=== PATIENT | male | born 1985 | race Caucasian/White ===

== ENCOUNTER 2019-03-19 19:25 | Inpatient (IN) ==
[2019-03-19] MEDS ORDERED: SODIUM CHLORIDE 0.9% 1000ML 1,000 ML IV SCH (20:00)
--- NOTE | 2019-03-19 20:18 | Emergency Department Note ---
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 He states that the nurse said "she couldn't hear out of his right lung." The patient reports that he had a fall 3 weeks ago after a few drinks, was taken to the hospital, and diagnosed with double pneumonia at [facility]. He reports that he was discharged from that hospital earlier today, noting that he was admitted for about 2 weeks. The patient complains of right-sided rib pain. He denies any SOB, new cough, lower extremity swelling, and abdominal pain. The patient reports that he used to have 10 drinks a day, but he has not had any alcohol in the past 3 weeks. He reports that he smokes a pack of cigarettes a day. Home Medications Home Medications Medication Instructions Recorded Confirmed Type acetaminophen [Tylenol] 650 mg PO BID PRN 03/19/19 03/19/19 History calcium carbonate [Tums] 400 mg PO Q4H PRN 03/19/19 03/19/19 History folic acid 1 mg PO DAILY 03/19/19 03/19/19 History guaifenesin [Mucinex] 600 mg PO BID 03/19/19 03/19/19 History hydroxyzine pamoate [Vistaril] 50 mg PO QID PRN 03/19/19 03/19/19 History ibuprofen 800 mg PO TID PRN 03/19/19 03/19/19 History melatonin 3 mg PO HS PRN 03/19/19 03/19/19 History multivitamin 1 tab PO DAILY 03/19/19 03/19/19 History thiamine HCl (vitamin B1) 100 mg PO DAILY 03/19/19 03/19/19 History trazodone 25 mg PO HS 03/19/19 03/19/19 History Allergies Allergy/AdvReac Type Severity Reaction Status Date / Time No Known Allergies Allergy Verified 03/19/19 20:25 Past Med/Surg History Medical History Alcohol use disorder Hypertension Insomnia Pneumonia Tobacco use disorder Surgical History H/O splenectomy Family History Unknown Family history non-contributory Social History Preferred Language: Cymraes Communication Ability: Effective Beliefs That Will Affect Care: None Current Living Situation: Spouse Current Living Situation Comment: first day at [facility] Other Information That Helps Us Care for You: No Feels Safe at Home: Yes Safety Concerns: Feels Safe At This Time Smoking Status: Current every day smoker Tobacco Type: cigarettes Cigarettes Per Day: 20 Do You Dip or Chew Tobacco: No Hx Alcohol Use: Yes Alcohol type: beer Alcohol Intake Frequency: Daily Hx Substance Use: No Review of Systems See HPI for pertinent positives & negatives. and A total of 10 systems reviewed and were otherwise negative Physical Exam Vital Signs Vital Signs - 24 hr 03/19/19 19:32 03/19/19 19:45 03/19/19 19:53 Temperature 37.9 C H Temperature Source Oral Sepsis Recent Fever Within 48 Hours Yes Sepsis Action Taken by Nursing No Action Required Pulse Rate 130 H 114 H Respiratory Rate 20 Respiratory Effort / Characteristics Non-Labored Spontaneous Non-Labored Respiratory Depth Normal Normal Respiratory Pattern Regular Blood Pressure 124/76 Blood Pressure Mean 92 Pulse Oximetry 97 99 Oxygen Delivery Method Room Air Room Air GENERAL: The patient is awake and alert. He is mildly anxious appearing but comfortable. EYES: The conjunctivae are clear. The pupils are round and reactive. EARS, NOSE, MOUTH AND THROAT: The nose is without any evidence of any deformity. Mucous membranes are moist.Tongue is midline NECK: The neck is nontender and supple. RESPIRATORY: Diminished breath sounds were noted in the right lung field. There is no tachypnea or conversational dyspnea appreciated. CARDIOVASCULAR: Tachycardic rate with regular rhythm was noted. No definite murmur was noted. GASTROINTESTINAL: The abdomen is soft. Bowel sounds are present in all quadrants. Abdomen is nontender. MUSCULOSKELETAL/EXTREMITIES: There is no evidence of gross deformity. Full range of motion is noted in the hips and shoulders. SKIN: There is no obvious evidence of any rash. There are no petechiae, pallor or cyanosis noted. NEUROLOGIC: Patient is awake alert and oriented x3. Course 1947: The patient was evaluated in room B03. A complete history and physical exam was performed. 2040: I reassessed the patient and updated him. He become upset when I spoke to him about the plan. 2053: [facility]. He will further evaluate the patient. 2103: I reevaluated the patient. Consultations Consultation #1: I spoke with Dr. London, [facility], about the patients case. He will further evaluate the patient. Time: 20:54 Administered Medications Acetaminophen (Tylenol) 650 mg PO Q4H PRN PRN Reason: Pain or Fever Stop: 04/18/19 22:17 Last Admin: 03/20/19 17:35 Dose: 650 mg Documented by: [id number] Admin: 03/20/19 09:49 Dose: 650 mg Documented by: [id number] Admin: 03/19/19 23:22 Dose: 650 mg Documented by: [id number] Docusate Sodium (Colace) 100 mg PO BID [facility] Stop: 04/19/19 08:59 Last Admin: 03/20/19 09:57 Dose: Not Given Documented by: [id number] Folic Acid (Folvite) 1 mg PO DAILY [facility] Stop: 04/19/19 08:59 Last Admin: 03/20/19 09:57 Dose: Not Given Documented by: [id number] Guaifenesin (Mucinex) 600 mg PO BID [facility] Stop: 04/19/19 08:59 Last Admin: 03/20/19 09:57 Dose: Not Given Documented by: [id number] Hydroxyzine HCl (Vistaril) 50 mg PO QID PRN PRN Reason: Anxiety Stop: 04/18/19 22:17 Last Admin: 03/20/19 09:49 Dose: 50 mg Documented by: [id number] Sodium Chloride (Nss 1000ml) 1,000 mls @ 100 mls/hr IV .Q10H [facility] Stop: 04/18/19 22:17 Last Infusion: 03/20/19 14:26 Dose: 100 mls/hr Documented by: [id number] Infusion: 03/20/19 12:15 Dose: 0 mls/hr Documented by: [id number] Admin: 03/20/19 12:15 Dose: 100 mls/hr Documented by: [id number] Infusion: 03/20/19 09:58 Dose: 100 mls/hr Documented by: [id number] Admin: 03/19/19 23:58 Dose: 100 mls/hr Documented by: [id number] Piperacillin Sod/Tazobactam (Sod 3.375 gm/ Dextrose) 115 mls @ 28.75 mls/hr IV Q8H [facility]; Protocol Stop: 03/27/19 03:59 Last Infusion: 03/20/19 16:31 Dose: 0 mls/hr Documented by: [id number] Admin: 03/20/19 12:14 Dose: 28.8 mls/hr Documented by: [id number] Infusion: 03/20/19 07:23 Dose: 0 mls/hr Documented by: [id number] Admin: 03/20/19 03:05 Dose: 28.8 mls/hr Documented by: [id number] Vancomycin HCl 1,000 mg/ (Sodium Chloride) 270 mls @ 125 mls/hr IV Q8H [facility] Stop: 03/27/19 03:59 Last Infusion: 03/20/19 14:26 Dose: 0 mls/hr Documented by: [id number] Admin: 03/20/19 12:14 Dose: 125 mls/hr Documented by: [id number] Infusion: 03/20/19 06:14 Dose: 0 mls/hr Documented by: [id number] Admin: 03/20/19 03:05 Dose: 125 mls/hr Documented by: [id number] Multivitamins (Multivitamin Tab) 1 tab PO DAILY [facility] Stop: 04/19/19 08:59 Last Admin: 03/20/19 09:57 Dose: Not Given Documented by: [id number] Nicotine (Nicoderm Cq) 21 mg TD QAM [facility] Stop: 04/19/19 08:59 Last Admin: 03/20/19 12:14 Dose: 21 mg Documented by: [id number] Admin: 03/19/19 23:15 Dose: 21 mg Documented by: [id number] Thiamine HCl (Vitamin B-1) 100 mg PO DAILY [facility] Stop: 04/19/19 08:59 Last Admin: 03/20/19 09:57 Dose: Not Given Documented by: [id number] Trazodone HCl (Desyrel) 25 mg PO HS [facility] Stop: 04/19/19 20:59 Last Admin: 03/19/19 23:34 Dose: 25 mg Documented by: [id number] Discontinued Medications Enoxaparin Sodium (Lovenox) 40 mg SQ Q24H [facility] Stop: 04/18/19 22:17 Last Admin: 03/19/19 23:41 Dose: Not Given Documented by: [id number] Sodium Chloride (Nss 1000ml) 1,000 mls @ 999 mls/hr IV .Q1H1M [facility] Stop: 03/19/19 21:00 Last Infusion: 03/20/19 07:25 Dose: 0 mls/hr Documented by: [id number] Infusion: 03/19/19 20:49 Dose: 0 mls/hr Documented by: [id number] Admin: 03/19/19 20:15 Dose: 999 mls/hr Documented by: [id number] Cefepime HCl (Maxipime) 20 mls @ 5 mls/min IV NOW STA Stop: 03/19/19 20:29 Last Admin: 03/19/19 20:41 Dose: 5 mls/min Documented by: [id number] Vancomycin HCl 1,750 mg/ (Sodium Chloride) 535 mls @ 200 mls/hr IV NOW STA Stop: 03/19/19 23:07 Last Infusion: 03/19/19 23:41 Dose: 0 mls/hr Documented by: [id number] Admin: 03/19/19 20:46 Dose: 200 mls/hr Documented by: [id number] Azithromycin 500 mg/ Dextrose 255 mls @ 127.5 mls/hr IV NOW STA Stop: 03/19/19 22:27 Last Infusion: 03/19/19 23:02 Dose: 0 mls/hr Documented by: [id number] Admin: 03/19/19 20:46 Dose: 127.5 mls/hr Documented by: [id number] Piperacillin Sod/Tazobactam (Sod 4.5 gm/ Dextrose) 120 mls @ 200 mls/hr IV NOW ONE; Protocol Stop: 03/19/19 23:20 Last Infusion: 03/20/19 01:05 Dose: 0 mls/hr Documented by: [id number] Admin: 03/20/19 00:10 Dose: 200 mls/hr Documented by: [id number] Ioversol (Optiray 320 125ml) 119 ml IV ONCE PRN PRN Reason: Interaction Checking Stop: 03/23/19 21:11 Last Admin: 03/19/19 21:12 Dose: 119 ml Documented by: [id number] Medical Decision Making Differential Diagnosis Etiologies such as shingles, musculoskeletal pain, pericarditis, myocarditis, cardiac ischemia, pericardial tamponade, pneumonia, pneumothorax, pleural effusion, hemothorax, pleurisy, aortic pathology, pulmonary embolism, intra- abdominal process, as well as others were considered. Medical Records Attestation: I reviewed the patient's medical records. Home Medications Current Medication List: was personally reviewed by me Laboratory Data Attestation: I reviewed the patient's lab results. Result diagrams: 03/19/19 20:10 03/19/19 20:10 Lab Results 03/19/19 03/19/19 03/19/19 Range/Units 20:05 20:10 20:10 WBC 23.26 H (4.8-10.8) K/uL RBC 3.28 L (4.7-6.1) M/uL Hgb 12.0 L (14.0-18.0) g/dL Hct 34.6 L (42-52) % MCV 105.5 H (80-100) fL MCH 36.6 H (25-34) pg MCHC 34.7 (32-36) g/dL RDW Std Deviation 53.5 H (36.4-46.3) fL RDW Coeff of Delicia 13.9 (11.5-14.5) % Plt Count 1070 H* (130-400) K/uL MPV 9.4 (7.4-10.4) fL Immature Gran % (Auto) 1.6 % Neut % (Auto) 62.3 % Lymph % (Auto) 11.9 % [place] % (Auto) 22.3 % Eos % (Auto) 1.6 % Baso % (Auto) 0.3 % Immature Gran # (Auto) 0.37 H (0.00-0.02) K/uL Neut # (Auto) 14.49 H (1.4-6.5) K/uL Lymph # (Auto) 2.77 (1.2-3.4) K/uL [place] # (Auto) 5.19 H (0.11-0.59) K/uL Eos # (Auto) 0.37 (0-0.5) K/uL Baso # (Auto) 0.07 (0-0.2) K/uL Absolute Nucleated RBC 0.00 (0-0) K/uL Nucleated RBC % (auto) 0.0 % Polychromasia 1+ Anisocytosis Present Pappenheimer Bodies 2+ Peripher Smr Path Cons ESR (0-14) mm/hr PT 10.2 (9.0-12.0) Seconds INR 1.0 (0.9-1.1) APTT 33.4 H (21.0-31.0) Seconds PTT Ratio 1.2 Sodium (136-145) mmol/L Potassium (3.5-5.1) mmol/L Chloride (98-107) mmol/L Carbon Dioxide (21-32) mmol/L Anion Gap (3-11) BUN (7-18) mg/dl Creatinine (0.6-1.4) mg/dl Est Cr Clr Drug Dosing ml/min Est GFR ( Amer) Est GFR (Non-Af Amer) BUN/Creatinine Ratio (10-20) Glucose (70-99) mg/dl POC Lactic Acid Flavio 1.04 (0.90-1.70) mmol/L Calcium (8.5-10.1) mg/dl Magnesium (1.8-2.4) mg/dl Total Bilirubin (0.2-1) mg/dl AST (15-37) U/L ALT (12-78) U/L Alkaline Phosphatase (45-117) U/L Troponin I (0-0.045) ng/ml C-Reactive Protein (0-0.29) mg/dl Total Protein (6.4-8.2) gm/dl Albumin (3.4-5.0) gm/dl Globulin (2.5-4.0) gm/dl Albumin/Globulin Ratio (0.9-2) 03/19/19 03/19/19 03/19/19 Range/Units 20:10 20:10 20:10 WBC (4.8-10.8) K/uL RBC (4.7-6.1) M/uL Hgb (14.0-18.0) g/dL Hct (42-52) % MCV (80-100) fL MCH (25-34) pg MCHC (32-36) g/dL RDW Std Deviation (36.4-46.3) fL RDW Coeff of Delicia (11.5-14.5) % Plt Count (130-400) K/uL MPV (7.4-10.4) fL Immature Gran % (Auto) % Neut % (Auto) % Lymph % (Auto) % [place] % (Auto) % Eos % (Auto) % Baso % (Auto) % Immature Gran # (Auto) (0.00-0.02) K/uL Neut # (Auto) (1.4-6.5) K/uL Lymph # (Auto) (1.2-3.4) K/uL [place] # (Auto) (0.11-0.59) K/uL Eos # (Auto) (0-0.5) K/uL Baso # (Auto) (0-0.2) K/uL Absolute Nucleated RBC (0-0) K/uL Nucleated RBC % (auto) % Polychromasia Anisocytosis Pappenheimer Bodies Peripher Smr Path Cons ESR 84 H (0-14) mm/hr PT (9.0-12.0) Seconds INR (0.9-1.1) APTT (21.0-31.0) Seconds PTT Ratio Sodium 134 L (136-145) mmol/L Potassium 4.1 (3.5-5.1) mmol/L Chloride 101 (98-107) mmol/L Carbon Dioxide 26 (21-32) mmol/L Anion Gap 7.0 (3-11) BUN 7 (7-18) mg/dl Creatinine 0.48 L (0.6-1.4) mg/dl Est Cr Clr Drug Dosing 209.8 ml/min Est GFR ( Amer) > 150.0 Est GFR (Non-Af Amer) 143.8 BUN/Creatinine Ratio 13.8 (10-20) Glucose 104 H (70-99) mg/dl POC Lactic Acid Flavio (0.90-1.70) mmol/L Calcium 8.8 (8.5-10.1) mg/dl Magnesium 2.3 (1.8-2.4) mg/dl Total Bilirubin 0.3 (0.2-1) mg/dl AST 21 (15-37) U/L ALT 27 (12-78) U/L Alkaline Phosphatase 92 (45-117) U/L Troponin I < 0.015 (0-0.045) ng/ml C-Reactive Protein 23.20 H (0-0.29) mg/dl Total Protein 7.1 (6.4-8.2) gm/dl Albumin 2.6 L (3.4-5.0) gm/dl Globulin 4.5 H (2.5-4.0) gm/dl Albumin/Globulin Ratio 0.6 L (0.9-2) Imaging Data Radiologist's Impression: Radiology results as stated below per my review and the radiologist's interpretation: XR chest 1V portable HISTORY: 33 years-old Male Dyspnea acute shortness of breath COMPARISON: None available TECHNIQUE: Portable AP view of the chest FINDINGS: Cardiac silhouette is normal in size. Small right pleural effusion with right infrahilar and right lung base opacities. Possible trace left pleural effusion. No pneumothorax or overt pulmonary edema. Bones appear grossly intact. IMPRESSION: Right basilar opacities suspicious for pneumonia with small right parapneumonic effusion. The above report was generated using voice recognition software. It may contain grammatical, syntax or spelling errors. Electronically signed by: Ricardo Daley M.D. 03/19/2019 8:[address] angio chest PE protocol, CT abd pelvis IV con only CT DOSE: 543.25 mGy.cm HISTORY: 33 years-old Male with PE. Acute cough with chest pain TECHNIQUE: Multiple CTA images of the chest were obtained after the intravenous administration of 119 ml Optiray 320. Coronal and sagittal MIPS were obtained from the axial data set and were submitted for review. Additionally, CT abdomen and pelvis with IV contrast only was obtained. All measurements were obtained according to NASCET criteria. A dose lowering technique was utilized adhering to the principles of ALARA. COMPARISON: Chest radiograph of same day. FINDINGS: CTA: Heart is normal in size without pericardial effusion. There is no thoracic aortic aneurysm or dissection. Patency of the imaged great vessels. Pulmonary arterial tree is opacified to the level of the subsegmental branches and demonstrates no focal filling defects to suggest pulmonary thromboembolic disease. CT CHEST: No focal thyroid nodule. Prominent 9 mm right tracheoesophageal recess lymph node. Additionally, there are enlarged subcarinal and right hilar lymph nodes with subcarinal lymph nodes measuring up to 2.0 x 1.7 cm. Mildly prominent nonenlarged AP window lymph nodes. Focus of air about the right lung base appears to be located within the pleural space on image 31 series 4. Mild enhancement of the pleura. Small mildly loculated right pleural effusion with consolidative opacities and groundglass densities noted within the basal right lower lobe and also within the right middle lobe, notably within the medial segment. Additionally, there are irregular consolidative nodular opacities of the superior segment right lower lobe measuring up to 10 mm, image 117 series 4. Mild paraseptal emphysema of the lung apices, right greater than left. Mild bibasilar bronchial wall thickening with areas of mucous plugging. Patchy groundglass opacities of the left lung base. Nodules of the basal left lower lobe are seen measuring up to 1.3 cm. Soft tissues are unremarkable. Bones appear to be intact. CT ABDOMEN/PELVIS: No pneumatosis or pneumoperitoneum. Absent spleen. Multiple soft tissue nodules of the abdominal left upper quadrant suggestive of splenosis. Liver, pancreas and adrenal glands appear unremarkable. Contracted gallbladder with wall thickening. Kidneys, and ureters appear unremarkable. There is mild circumferential wall thickening of the bladder with partial distention. Prostate is upper limits of normal in size. Aorta and IVC are within normal limits. No adenopathy. No bowel obstruction or bowel wall thickening. Moderate formed stool throughout the colon suggests constipation. Terminal ileum and appendix appear normal. No ascites or mesenteric inflammation. Tiny fat filled periumbilical hernia. Multiple additional small ventral fat filled abdominal hernias are noted. Bones appear to be intact. IMPRESSION: 1. No evidence of pulmonary thromboembolic disease. 2. Consolidative and groundglass opacities of the right lung base suggest pneumonia. Additionally, there are a few irregular nodular consolidative densities of the superior segment right lower lobe which are also likely related to infectious or inflammatory etiology. Follow-up CT of the chest after treatment course recommended to document complete resolution. 3. Small mildly loculated right parapneumonic effusion. Focus of air about the right lung base appears to be within the pleural fluid. Correlate clinically to exclude developing empyema. 4. Absent spleen with multiple soft tissue nodules of the abdominal left upper quadrant suggestive of splenosis. Additionally, there are pulmonary nodules of the left lung base measuring up to 13 mm which may also represent splenosis. 5. No bowel obstruction or bowel wall thickening. Normal appendix. 6. Moderate constipation. 7. Additional findings as above. The above report was generated using voice recognition software. It may contain grammatical, syntax or spelling errors. Electronically signed by: Ricardo Daley M.D. 03/19/2019 9:40 PM ECG Data Attestation: I personally reviewed and interpreted this ECG as follows: Indication: other (respiratory problems) Rate (beats per minute): 107 Rhythm: sinus tachycardia Findings: + T-wave inversion (anterior T-wave inversions noted); no ectopy Comparison ECG Date: no prior available Blood Pressure Blood Pressure Findings: Normal blood pressure Blood Pressure Disposition: did not require urgent referral MDM Narrative The patient is a 33-year-old male who presented to the emergency department from inpatient detox for evaluation of abnormal lung sounds. The patient was recently admitted to [facility] after a trauma. The patient was treated for pneumonia. He was discharged from our facility and sent for inpatient detox because of chronic alcoholism. The patient has not had any alcohol within the last few weeks. He does not appear to have signs of detox but he is tachycardic and has a low-grade fever. He does have absent lung sounds in the right lung field which was noticed by nursing at detox. He was s ent to the emergency department for this reason. The patient was treated with IV fluids as well as IV antibiotic's. He was covered for pathogens specifically for his history of splenectomy as well as community-acquired pneumonia as well as hospital-acquired pneumonia. The patient also had a CAT scan of the chest which did reveal signs of some pleural effusion which could be related to an empyema. I discussed the patient's laboratory and radiographic studies with him. I also discussed his case with the on-call [facility] hospitalist group. They have agreed to evaluate the patient in the emergency department for further management and disposition. Impression & Plan Pneumonia, Pleural effusion, Fever, Sinus tachycardia, History of splenectomy, Family history of alcohol abuse Discharge Plan Visit Data *Final* Discharge Date/Time: 03/19/19 21:45 Chief Complaint: Respiratory Problems Stated Complaint: RT LUNG HURTS, DX WITH DOUBLE PNEUMONIA ED Provider: Andre Dominguez Discharge Problem: Pneumonia, Pleural effusion, Fever, Sinus tachycardia, History of splenectomy, Family history of alcohol abuse Patient Disposition: Admitted As Inpatient Discharge Instructions Interventions: ED Discharge Assessment Last Done: 03/19/19 21:45 Discharge Problem: Pneumonia Qualifiers: Pneumonia type: due to unspecified organism Laterality: unspecified laterality Lung location: unspecified part of lung Qualified Code(s): J18.9 - Pneumonia, unspecified organism Fever Qualifiers: Fever type: due to other condition Qualified Code(s): R50.81 - Fever presenting with conditions classified elsewhere The scribe's documentation has been prepared under my direction and personally reviewed by me in its entirety. I confirm that the note above accurately reflects all work, treatment, procedures, and medical decision making performed by me.
[2019-03-19 20:22] LABS: Hematocrit (blood only) 34.6 % (42-52); Mean Corpuscular Hgb Conc 34.7 g/dL (32-36); Mean Corpuscular Volume 105.5 fL (80-100); Mean Platelet Volume 9.4 fL (7.4-10.4); Platelet Count 1070 K/uL (130-400); RDW Coefficient of Variation 13.9 % (11.5-14.5); RDW Standard Deviation 53.5 fL (36.4-46.3); Red Blood Count 3.28 M/uL (4.7-6.1); White Blood Count 23.26 K/uL (4.8-10.8)
[2019-03-19] MEDS ORDERED: CEFEPIME 20 ML IV STA (20:26)
[2019-03-19] MEDS ORDERED: VANCOMYCIN HCL 1,750 MG in SODIUM CHLORIDE 0.9% 500 ML IV STA (20:27)
[2019-03-19 20:28] LABS: Partial Thromboplastin Ratio 1.2; Partial Thromboplastin Time 33.4 Seconds (21.0-31.0); Prothrombin Time 10.2 Seconds (9.0-12.0)
[2019-03-19] MEDS ORDERED: AZITHROMYCIN 500 MG in DEXTROSE 5% 250 ML IV STA (20:28)
--- NOTE | 2019-03-19 20:34 | XRay Report ---
XR chest 1V portable HISTORY: 33 years-old Male Dyspnea acute shortness of breath COMPARISON: None available TECHNIQUE: Portable AP view of the chest FINDINGS: Cardiac silhouette is normal in size. Small right pleural effusion with right infrahilar and right harpal ng base opacities. Possible trace left pleural effusion. No pneumothorax or overt pulmonary edema. Ajay aletha appear grossly intact. IMPRESSION: Right basilar opacities suspicious for pneumonia with small right parapneumonic effusion. The above report was generated using voice recognition software. It may contain grammatical, syntax o r spelling errors. Electronically signed by: Ricardo Daley M.D. 03/19/2019 8:32 PM
[2019-03-19 20:38] LABS: Alanine Aminotransferase 27 U/L (12-78); Albumin Level 2.6 gm/dl (3.4-5.0); Aspartate Aminotransferase 21 U/L (15-37); BUN Creatinine Ratio 13.8 (10-20); Blood Urea Nitrogen 7 mg/dl (7-18); Calcium 8.8 mg/dl (8.5-10.1); Carbon Dioxide 26 mmol/L (21-32); Chloride 101 mmol/L (98-107); Creatinine Clr Calc Pharmacy 209.8 ml/min; Est GFR (African American) > 150.0; Est GFR (Non-African American) 143.8; Glucose 104 mg/dl (70-99); Magnesium 2.3 mg/dl (1.8-2.4); Potassium 4.1 mmol/L (3.5-5.1); Sodium 134 mmol/L (136-145)
[2019-03-19 20:42] LABS: Albumin Globulin Ratio 0.6 (0.9-2); Alkaline Phosphatase 92 U/L (45-117); Anisocytosis Present; Basophils # (auto) 0.07 K/uL (0-0.2); Basophils % (auto) 0.3 %; Bilirubin,Total 0.3 mg/dl (0.2-1); Eosinophils # (auto) 0.37 K/uL (0-0.5); Eosinophils % (auto) 1.6 %; Globulin 4.5 gm/dl (2.5-4.0); Immature Granulocytes # (auto) 0.37 K/uL (0.00-0.02); Immature Granulocytes % (auto) 1.6 %; Lymphocytes # (auto) 2.77 K/uL (1.2-3.4); Lymphocytes % (auto) 11.9 %; Monocytes # (auto) 5.19 K/uL (0.11-0.59); Monocytes % (auto) 22.3 %; Neutrophils # (auto) 14.49 K/uL (1.4-6.5); Neutrophils % (auto) 62.3 %; Polychromasia 1+; Total Protein 7.1 gm/dl (6.4-8.2); Troponin I < 0.015 ng/ml (0-0.045)
[2019-03-19] MEDS ORDERED: OPTIRAY 320 125ml IV PRN (21:12)
--- NOTE | 2019-03-19 21:42 | CT Scan Report ---
CT angio chest PE protocol, CT abd pelvis IV con only CT DOSE: 543.25 mGy.cm HISTORY: 33 years-old Male with PE. Acute cough with chest pain TECHNIQUE: Multiple CTA images of the chest were obtained after the intravenous administration of 119 ml Optiray 320. Coronal and sagittal MIPS were obtained from the axial data set and were submitted for review. Additionally, CT abdomen and pelvis with IV contrast only was obtained. All measurements were obtained according to NASCET criteria. A dose lowering technique was utilized adhering to the pr inciples of ALA. COMPARISON: Chest radiograph of same day. FINDINGS: CTA: Heart is normal in size without pericardial effusion. There is no thoracic aortic aneurysm or dissect ion. Patency of the imaged great vessels. Pulmonary arterial tree is opacified to the level of the zimmerman bsegmental branches and demonstrates no focal filling defects to suggest pulmonary thromboembolic dis ease. CT CHEST: No focal thyroid nodule. Prominent 9 mm right tracheoesophageal recess lymph node. Additionally, ther e are enlarged subcarinal and right hilar lymph nodes with subcarinal lymph nodes measuring up to 2.0 x 1.7 cm. Mildly prominent nonenlarged AP window lymph nodes. Focus of air about the right lung base appears to be located within the pleural space on image 31 series 4. Mild enhancement of the pleura. Small mildly loculated right pleural effusion with consolidative opacities and groundglass densities noted within the basal right lower lobe and also within the right middle lobe, notably within the me dial segment. Additionally, there are irregular consolidative nodular opacities of the superior segme nt right lower lobe measuring up to 10 mm, image 117 series 4. Mild paraseptal emphysema of the lung apices, right greater than left. Mild bibasilar bronchial wall thickening with areas of mucous pluggi ng. Patchy groundglass opacities of the left lung base. Nodules of the basal left lower lobe are seen measuring up to 1.3 cm. Soft tissues are unremarkable. Bones appear to be intact. CT ABDOMEN/PELVIS: No pneumatosis or pneumoperitoneum. Absent spleen. Multiple soft tissue nodules of the abdominal left upper quadrant suggestive of splenosis. Liver, pancreas and adrenal glands appear unremarkable. Cont racted gallbladder with wall thickening. Kidneys, and ureters appear unremarkable. There is mild circ umferential wall thickening of the bladder with partial distention. Prostate is upper limits of lynn l in size. Aorta and IVC are within normal limits. No adenopathy. No bowel obstruction or bowel wall thickening. Moderate formed stool throughout the colon suggests constipation. Terminal ileum and appe ndix appear normal. No ascites or mesenteric inflammation. Tiny fat filled periumbilical hernia. Mult iple additional small ventral fat filled abdominal hernias are noted. Bones appear to be intact. IMPRESSION: 1. No evidence of pulmonary thromboembolic disease. 2. Consolidative and groundglass opacities of the right lung base suggest pneumonia. Additionally, th ere are a few irregular nodular consolidative densities of the superior segment right lower lobe whic h are also likely related to infectious or inflammatory etiology. Follow-up CT of the chest after yannick atment course recommended to document complete resolution. 3. Small mildly loculated right parapneumonic effusion. Focus of air about the right lung base appear s to be within the pleural fluid. Correlate clinically to exclude developing empyema. 4. Absent spleen with multiple soft tissue nodules of the abdominal left upper quadrant suggestive of splenosis. Additionally, there are pulmonary nodules of the left lung base measuring up to 13 mm whi ch may also represent splenosis. 5. No bowel obstruction or bowel wall thickening. Normal appendix. 6. Moderate constipation. 7. Additional findings as above. The above report was generated using voice recognition software. It may contain grammatical, syntax o r spelling errors. Electronically signed by: Ricardo Daley M.D. 03/19/2019 9:40 PM
--- NOTE | 2019-03-19 22:12 | History & Physical Report ---
Date of Service March 19, 2019 Assessment & Plan (1) Sepsis: Sepsis: HCAP Possible Empyema No resolution of fever, Right side chest pain despite 2 weeks of IV antibiotics Start broad spectrum IV Antibiotics (Vanco, Zosyn, azithromycin) Oxygen support, Duonebs PRN Blood cultures obtained CT surgery consulted for possible drainage of empyema Normal lactate level IV fluids Obtain records from [facility] Ongoing Diarrhea: H/O IV ABx at [facility] Check stool for C. difficile Likely overflow diarrhea secondary to moderate constipation Add stool softeners Alcohol use disorder H/O DTs Continue thiamine and folic acid Last alcohol drink 3 weeks ago Needs alcohol rehab placement when stable Counseled to quit drinking Tobacco use disorder Nicotine patch Counseled to quit smoking Thrombocytosis Macrocytosis In setting of S/P splenectomy, trauma, ongoing infection Obtain peripheral smear Microcytic anemia Likely folic acid deficiency due to alcohol use Continue folic acid Monitor Insomnia Continue Home meds DVT Px: SCDs Encourage to ambulate Code Status: Full Code Disposition: Needs alcohol rehab facility placement when stable History of Present Illness Chief Complaint: Fever Primary Care Provider: BRITTANY PCP Patient is a 33-year-old male with history of alcohol use disorder, tobacco use disorder, Insomnia, history of DTs, history of traumatic pneumothorax, traumatic subdural hemorrhage, S/P splenectomy and other problems who was recently admitted at [facility] for bilateral pneumonia and was discharged yesterday to alcohol rehab facility; presents with history of ongoing fever, diarrhea, right-sided pleuritic chest pain, cough with clear expectoration since 3 weeks duration. Patient is a poor historian. As per the records, patient had a fall 3 weeks ago after having few alcohol drinks and was admitted to [facility] and was found to have pneumonia. Patient states that he has been treated with multiple antibiotics during his hospital course but showed no resolution of fever and right-sided pruritic chest pain. He reports chronic diarrhea but denies any abdominal pain, nausea vomiting, blood in stools. His last alcohol drink was 3 weeks ago. He states that his nurse at the rehab facility noted him to have decreased breath sounds on the right side and and so was sent to the hospital for further evaluation. He was noted to have low-grade fever while in ED. CT chest showed no evidence of PE, but showed findings suggestive of consolidative and groundglass opacities of the right lung base suggestive of pneumonia. Also showed findings suggestive of small mildly loculated right parapneumonic effusion. Abdominal CT scan also suggestive moderate constipation. Denies any history of SOB, palpitations, orthopnea, PND, dizziness, pedal edema, wheezing, hemoptysis, chills, weakness, change in vision, nausea, vomiting, abdominal pain, dysuria, hematuria, recent change in medications Allergies Allergy/AdvReac Type Severity Reaction Status Date / Time No Known Allergies Allergy Verified 03/19/19 20:25 Home Medications Home Medications Medication Instructions Recorded Confirmed Type acetaminophen [Tylenol] 650 mg PO BID PRN 03/19/19 03/19/19 History calcium carbonate [Tums] 400 mg PO Q4H PRN 03/19/19 03/19/19 History folic acid 1 mg PO DAILY 03/19/19 03/19/19 History guaifenesin [Mucinex] 600 mg PO BID 03/19/19 03/19/19 History hydroxyzine pamoate [Vistaril] 50 mg PO QID PRN 03/19/19 03/19/19 History ibuprofen 800 mg PO TID PRN 03/19/19 03/19/19 History melatonin 3 mg PO HS PRN 03/19/19 03/19/19 History multivitamin 1 tab PO DAILY 03/19/19 03/19/19 History thiamine HCl (vitamin B1) 100 mg PO DAILY 03/19/19 03/19/19 History trazodone 25 mg PO HS 03/19/19 03/19/19 History Past Med/Surg History Medical History Alcohol use disorder Hypertension Insomnia Pneumonia Tobacco use disorder Surgical History H/O splenectomy Family History Unknown Family history non-contributory Social History Feels Safe at Home: Yes Smoking Status: Current every day smoker Hx Alcohol Use: Yes Alcohol type: beer Alcohol Intake Frequency: Daily Review of Systems Review of Systems: All systems reviewed & are unremarkable except as noted in HPI & below Physical Exam Physical Exam: Physical Exam: Vitals signs as noted above General Appearance:Moderately built and nourished, no apparent distress Head: normocephalic, Atraumatic Eyes: normal inspection, EOMI Neck: supple, Trachea midline Respiratory/Chest: Right side decreased breath sounds, CTA, R chest tender Cardiovascular: S1, S2, No murmur, +sinus tachycardia Abdomen/GI:Soft, Non tender, Bowel sounds present Extremities/Musculoskelatal:normal inspection, no edema Neurologic/Psych:AAOX3, grossly no focal neurological deficits Skin: normal color, warm, Multiple well-healed surgical scars on scalp, abdomen Results & Data Vital Signs (Past 12 Hours) Vital Signs Temp Pulse Pulse Resp BP BP Pulse Ox 03/19/19 21:26 108 H 16 135/90 98 03/19/19 19:53 114 H 99 03/19/19 19:32 37.9 C H 130 H 20 124/76 97 Laboratory Results Short CBC 03/19/19 Range/Units 20:10 WBC 23.26 H (4.8-10.8) K/uL Hgb 12.0 L (14.0-18.0) g/dL Hct 34.6 L (42-52) % Plt Count 1070 H* (130-400) K/uL BMP 03/19/19 20:10 Sodium 134 L Potassium 4.1 Chloride 101 Carbon Dioxide 26 BUN 7 Creatinine 0.48 L Glucose 104 H Calcium 8.8 Cardiac Enzymes 03/19/19 Range/Units 20:10 Troponin I < 0.015 (0-0.045) ng/ml Liver Function 03/19/19 Range/Units 20:10 Total Bilirubin 0.3 (0.2-1) mg/dl AST 21 (15-37) U/L ALT 27 (12-78) U/L Alkaline Phosphatase 92 (45-117) U/L Albumin 2.6 L (3.4-5.0) gm/dl Diagnostic Findings CTA: 1. No evidence of pulmonary thromboembolic disease. 2. Consolidative and groundglass opacities of the right lung base suggest pneumonia. Additionally, there are a few irregular nodular consolidative densities of the superior segment right lower lobe which are also likely related to infectious or inflammatory etiology. Follow-up CT of the chest after treatment course recommended to document complete resolution. 3. Small mildly loculated right parapneumonic effusion. Focus of air about the right lung base appears to be within the pleural fluid. Correlate clinically to exclude developing empyema. 4. Absent spleen with multiple soft tissue nodules of the abdominal left upper quadrant suggestive of splenosis. Additionally, there are pulmonary nodules of the left lung base measuring up to 13 mm which may also represent splenosis. 5. No bowel obstruction or bowel wall thickening. Normal appendix. 6. Moderate constipation. 7. Additional findings as above. ABD CT: 1. No evidence of pulmonary thromboembolic disease. 2. Consolidative and groundglass opacities of the right lung base suggest pneumonia. Additionally, there are a few irregular nodular consolidative densities of the superior segment right lower lobe which are also likely related to infectious or inflammatory etiology. Follow-up CT of the chest after treatment course recommended to document complete resolution. 3. Small mildly loculated right parapneumonic effusion. Focus of air about the right lung base appears to be within the pleural fluid. Correlate clinically to exclude developing empyema. 4. Absent spleen with multiple soft tissue nodules of the abdominal left upper quadrant suggestive of splenosis. Additionally, there are pulmonary nodules of the left lung base measuring up to 13 mm which may also represent splenosis. 5. No bowel obstruction or bowel wall thickening. Normal appendix. 6. Moderate constipation. 7. Additional findings as above. ECG Additional Comments: EKG: Sinus tachycardia, QTC 419
[2019-03-19] MEDS ORDERED: ALBUT/IPRATROP 3MG/0.5MG NEB 3 ML VIAL NEB PRN (22:18)
[2019-03-19] MEDS ORDERED: ENOXAPARIN INJ 40 MG/0.4 ML SYR SQ SCH (22:18)
[2019-03-19] MEDS ORDERED: VANCOMYCIN CONSULT ACTIVE PRN (22:18)
[2019-03-19] MEDS ORDERED: PIPERACILL/TAZOBAC CONSULT ACTIVE PRN (22:29)
[2019-03-19] MEDS ORDERED: PIPERACILLIN/TAZOBACTAM 3.375 GM in DEXTROSE 5% 100 ML IV ONE (22:45)
[2019-03-19] MEDS ORDERED: PIPERACILLIN/TAZOBACTAM 4.5 GM in DEXTROSE 5% 100 ML IV ONE (22:45)
[2019-03-19] MEDS: NICOTINE 21 MG/24 HR TDSY TD SCH (23:15)
[2019-03-19] MEDS: ACETAMINOPHEN 325 MG TAB PO PRN (23:22)
[2019-03-19] MEDS: TRAZODONE HCL 50 MG TAB PO SCH (23:34)
[2019-03-19] MEDS: SODIUM CHLORIDE 0.9% 1000ML 1,000 ML IV SCH (23:58)
[2019-03-20] MEDS: PIPERACILLIN/TAZOBACTAM 3.375 GM in DEXTROSE 5% 100 ML IV SCH ×3 (03:05→20:59)
[2019-03-20] MEDS: VANCOMYCIN HCL 1,000 MG in SODIUM CHLORIDE 0.9% 250 ML IV SCH ×3 (03:05→19:55)
[2019-03-20 07:33] LABS: Pappenheimer Bodies 2+
--- NOTE | 2019-03-20 09:00 | Consultation Report ---
DATE OF CONSULTATION: 03/20/2019 REASON FOR CONSULTATION: Right empyema. HISTORY OF PRESENT ILLNESS: Chente Poole is a 33-year-old male who has a history of alcohol abuse, cigarette use and who has a history of a splenectomy secondary to trauma. The patient was at [facility] for a couple of weeks and then was transferred to an [facility], and 1 day after his arrival, he was complaining of pleuritic chest pain and a chest x-ray and then a subsequent CT scan showed a loculated effusion. The patient's white count is 23,260. His platelet count is 1,070,000. He did have a temperature elevation at 37.9 upon admission last night. The patient gives a history of vomiting and coughing up quite a bit of a couple weeks prior to admission, but was treated with antibiotics for the last couple of weeks while he was at [facility]. I was asked to see him because of this fluid in his chest. There is some air in this. I had a long talk with the patient. He has a history of a subdural hematoma from this accident. I am a bit concerned about the CT scan. He has extension of this fluid into his subcarinal area or has a lymph node or has lymphadenopathy. I was asked to evaluate him for this suspected empyema. PAST MEDICAL HISTORY: 1. Cigarette smoking (at least a pack a day for almost 20 years). 2. History of alcohol abuse which is apparently very heavy. 3. History of pneumonia in the past. 4. Hypertension. 5. Insomnia. 6. Thrombocytosis, secondary to splenectomy. 7. Subdural hematoma. PAST SURGICAL HISTORY: 1. Craniotomy with drainage of subdural hematoma. 2. Laparotomy with splenectomy. MEDICATIONS AT HOME: 1. Folic acid. 2. Mucinex. 3. Vistaril. 4. Ibuprofen. 5. Melatonin. 6. Thiamine. 7. Trazodone. ALLERGIES: No known drug allergies. SOCIAL HISTORY: The patient had some social issues. He is , but lives alone. 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 He currently lives in [place], [place]. He has had some college at [employer] and played baseball there. 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 FAMILY MEDICAL HISTORY: There is a history of alcohol abuse in his family. REVIEW OF SYSTEMS: The patient had vomiting of "a ton of green stuff" about 3 weeks ago that is when his cough started. He may have aspirated. He denies tachycardias or palpitations. He is complaining of right-sided chest pain, but has no other pain in his chest. He denies any neurologic problems. He has had no diarrhea. He apparently was treated for right-sided pneumonia while he was in [facility]. He has not had any alcohol in 3 weeks. He denies hemoptysis or hematemesis. He has had no wound breakdown or skin lesions. He has had no visual or auditory symptoms. PHYSICAL EXAMINATION: GENERAL: This is a 5 feet 8-inch and 155-pound male who is awake and alert. He has multiple tattoos. HEENT: Extraocular movements are intact. His teeth are actually in pretty good repair. He has no obvious dental caries. Tongue is midline. He has no oral mucosal lesions. NECK: His neck is supple. I detect no supraclavicular or cervical lymphadenopathy or carotid bruits. He has no thyroid nodules. LUNGS: Upon auscultation of his lungs, he does have some decreased breath sounds in the right base. He is tender along the right chest, but he has no lesions. HEART: He has a regular rate and rhythm of his heart. He has no significant murmur. ABDOMEN: Soft, nontender, well-healed midline incision. EXTREMITIES: He has good peripheral pulses. No peripheral edema. No joint effusions. NEUROLOGIC: Completely intact. ASSESSMENT AND PLAN: Probable empyema. I believe this patient needs to be drained and decorticated. I do not think a chest tube is going to help him. We will get him set up for a thoracoscopic decortication while he is here.
--- NOTE | 2019-03-20 09:16 | Pharmacy Report ---
Pharmacy Abx Dose Short Note - Date of Service March 20, 2019 - Assessment & Plan Assessment * 33 year old M receiving VANCOMYCIN + ZOSYN + AZITHROMYCIN for treatment of pneumonia with empyema * Patient has recent h/o pneumonia w/ inpatient treatment * He also has a h/o splenectomy and heavy alcohol use and was recently admit to rehab facility * Thoracic surgery consulted for empyema - may undergo thoracoscopic procedure * MRSA nasal swab negative Plan Vancomycin * Initiated overnight, was given loading dose of 1750mg x 1 at 03/19 * Maint dose of 1000mg (~14mg/kg) IV Q 8 hrs was started at ~0300 today * Trough level has been ordered w/ 3rd dose of this regimen * Goal trough: 15-20mcg/mL for pulm infection Zosyn * BMI < 35, eCrCl > 20 * continue 3.375gm ext-infusion Q 8 hrs Pharmacy will continue to follow and will adjust dose/frequency as necessary. Thank you.
[2019-03-20] MEDS: ACETAMINOPHEN 325 MG TAB PO PRN ×3 (09:49→21:58)
[2019-03-20] MEDS: THIAMINE HCL 100 MG TAB PO SCH (09:57)
[2019-03-20] MEDS: DOCUSATE SODIUM 100 MG CAP PO SCH ×2 (09:57→21:59)
[2019-03-20] MEDS: MULTIVITAMIN TAB PO SCH (09:57)
[2019-03-20] MEDS: guaiFENesin 600 MG TABCR PO SCH ×2 (09:57→21:59)
[2019-03-20] MEDS: FOLIC ACID 1 MG TAB PO SCH (09:57)
[2019-03-20] MEDS: NICOTINE 21 MG/24 HR TDSY TD SCH (12:14)
[2019-03-20] MEDS: SODIUM CHLORIDE 0.9% 1000ML 1,000 ML IV SCH ×2 (12:15→23:55)
--- NOTE | 2019-03-20 15:57 | Hospitalist Progress Note ---
Date of Service March 20, 2019 Assessment & Plan (1) Sepsis: Sepsis: HCAP Possible Empyema Has had antibiotics for about 2 weeks in another facility Started on broad spectrum IV Antibiotics (Vanco, Zosyn, azithromycin) Blood cultures obtained -cultures pending CT surgery consulted for possible drainage of empyema Awaiting records from [facility] Clinically stable Ongoing Diarrhea: H/O IV ABx at [facility] Check stool for C. difficile-pending Likely overflow diarrhea secondary to moderate constipation Add stool softeners Alcohol abuse H/O DTs and recent admission to inpatient rehab facility Continue thiamine and folic acid Needs alcohol rehab placement when stable Tobacco use disorder Nicotine patch Counseled to quit smoking Thrombocytosis Macrocytosis In setting of S/P splenectomy, trauma, ongoing infection Obtain peripheral smear Microcytic anemia Likely folic acid deficiency due to alcohol use Continue folic acid Monitor Insomnia Continue Home meds DVT Px: SCDs Encourage to ambulate Code Status: Full Code Disposition: Needs alcohol rehab facility placement when stable Discussed with the patient in detail Subjective 03/20 The patient was seen and examined in the telemetry unit Patient is a 33-year-old male with history of alcohol use disorder, tobacco use disorder, Insomnia, history of DTs, history of traumatic pneumothorax, traumatic subdural hemorrhage, S/P splenectomy and other problems who was recently admitted at [facility] for bilateral pneumonia and was discharged on 03/18 to alcohol rehab facility; presents with history of ongoing fever, diarrhea, right-sided pleuritic chest pain, cough with clear expectoration since 3 weeks duration Noted to have pneumonia with very high white count and possible empyema He has been feeling a little better and so far compliant with management plan Review of Systems Review of Systems: All systems reviewed and are unremarkable except as noted below Constitutional: + chills, + body aches, + fatigue and + weakness; no fever Respiratory: no dyspnea Gastrointestinal: + abdominal pain (Left quadrants) Physical Exam Physical Exam: Minimal distress at rest Constitutional: + ill appearing Eyes: PERRL, conjunctivae normal, anicteric sclerae ENMT: external ear and nose normal, oropharynx normal Neck: trachea midline, no thyromegaly Respiratory: normal respiratory effort; no respiratory distress Auscultation: + diminished lung sounds (Right base) Cardiovascular: Rate/Rhythm: regular rate and regular rhythm Heart Sounds: no murmur Lymphatic: no cervical or axillary lymphadenopathy Results & Data Vital Signs (Past 12 Hours) Vital Signs Temp Pulse Resp BP Pulse Ox 03/20/19 11:12 37.3 C 90 16 129/82 96 03/20/19 07:16 36.9 C 104 H 17 127/82 94 Laboratory Results Short CBC 03/19/19 Range/Units 20:10 WBC 23.26 H (4.8-10.8) K/uL Hgb 12.0 L (14.0-18.0) g/dL Hct 34.6 L (42-52) % Plt Count 1070 H* (130-400) K/uL BMP 03/19/19 20:10 Sodium 134 L Potassium 4.1 Chloride 101 Carbon Dioxide 26 BUN 7 Creatinine 0.48 L Glucose 104 H Calcium 8.8 Cardiac Enzymes 03/19/19 Range/Units 20:10 Troponin I < 0.015 (0-0.045) ng/ml Liver Function 03/19/19 Range/Units 20:10 Total Bilirubin 0.3 (0.2-1) mg/dl AST 21 (15-37) U/L ALT 27 (12-78) U/L Alkaline Phosphatase 92 (45-117) U/L Albumin 2.6 L (3.4-5.0) gm/dl Medications Administered Current Inpatient Medications Acetaminophen (Tylenol) 650 mg PO Q4H PRN PRN Reason: Pain or Fever Stop: 04/18/19 22:17 Last Admin: 03/20/19 09:49 Dose: 650 mg Documented by: Albuterol (Duoneb) 3 ml NEB Q4R PRN PRN Reason: shortness of breath Stop: 04/18/19 22:17 Docusate Sodium (Colace) 100 mg PO BID [facility] Stop: 04/19/19 08:59 Last Admin: 03/20/19 09:57 Dose: Not Given Documented by: Folic Acid (Folvite) 1 mg PO DAILY [facility] Stop: 04/19/19 08:59 Last Admin: 03/20/19 09:57 Dose: Not Given Documented by: Guaifenesin (Mucinex) 600 mg PO BID [facility] Stop: 04/19/19 08:59 Last Admin: 03/20/19 09:57 Dose: Not Given Documented by: Hydroxyzine HCl (Vistaril) 50 mg PO QID PRN PRN Reason: Anxiety Stop: 04/18/19 22:17 Last Admin: 03/20/19 09:49 Dose: 50 mg Documented by: Azithromycin 500 mg/ Dextrose 255 mls @ 125 mls/hr IV Q24H [facility] Stop: 03/25/19 23:03 Sodium Chloride (Nss 1000ml) 1,000 mls @ 100 mls/hr IV .Q10H [facility] Stop: 04/18/19 22:17 Last Infusion: 03/20/19 14:26 Dose: 100 mls/hr Documented by: Piperacillin Sod/Tazobactam (Sod 3.375 gm/ Dextrose) 115 mls @ 28.75 mls/hr IV Q8H [facility]; Protocol Stop: 03/27/19 03:59 Last Admin: 03/20/19 12:14 Dose: 28.8 mls/hr Documented by: Vancomycin HCl 1,000 mg/ (Sodium Chloride) 270 mls @ 125 mls/hr IV Q8H [facility] Stop: 03/27/19 03:59 Last Infusion: 03/20/19 14:26 Dose: Infused Documented by: Miscellaneous (Remove Nicoderm Patch) 1 ea N/A HS [facility] Stop: 04/19/19 20:59 Miscellaneous Information (Consult) 1 ea N/A UD PRN PRN Reason: Consult Stop: 04/18/19 22:17 Miscellaneous Information (Consult) 1 ea N/A UD PRN PRN Reason: Consult Stop: 04/18/19 22:28 Multivitamins (Multivitamin Tab) 1 tab PO DAILY [facility] Stop: 04/19/19 08:59 Last Admin: 03/20/19 09:57 Dose: Not Given Documented by: Nicotine (Nicoderm Cq) 21 mg TD QAM [facility] Stop: 04/19/19 08:59 Last Admin: 03/20/19 12:14 Dose: 21 mg Documented by: Thiamine HCl (Vitamin B-1) 100 mg PO DAILY [facility] Stop: 04/19/19 08:59 Last Admin: 03/20/19 09:57 Dose: Not Given Documented by: Trazodone HCl (Desyrel) 25 mg PO [facility] Stop: 04/19/19 20:59 Last Admin: 03/19/19 23:34 Dose: 25 mg Documented by:
--- NOTE | 2019-03-20 16:53 | Progress Note ---
DATE: 03/20/2019 Mr. Poole was seen this afternoon. The patient was tentatively scheduled for his decortication today, but became agitated wanting to eat, so the surgery was postponed. I have tentatively scheduled him for tomorrow about 1:00 for a right thoracoscopy with decortication. Mr. Poole has some behavioral issues and I am hopeful that he will proceed with the surgery tomorrow. I think this is making him ill and it needs to be addressed.
[2019-03-20] MEDS ORDERED: COUGH DROP (SUGAR FREE) LOZ 24 LOZ/1 BOX BUCCAL ONE (18:06)
[2019-03-20] MEDS ORDERED: VANCOMYCIN TROUGH ONE (19:30)
[2019-03-20 19:50] LABS: BUN Creatinine Ratio 7.1 (10-20); Blood Urea Nitrogen 4 mg/dl (7-18); Calcium 8.4 mg/dl (8.5-10.1); Carbon Dioxide 24 mmol/L (21-32); Chloride 105 mmol/L (98-107); Creatinine Clr Calc Pharmacy 183.1 ml/min; Est GFR (African American) > 150.0; Glucose 126 mg/dl (70-99); Potassium 4.2 mmol/L (3.5-5.1); Sodium 136 mmol/L (136-145)
[2019-03-20 20:40] LABS: Hematocrit (blood only) 34.6 % (42-52); Hemoglobin 11.7 g/dL (14.0-18.0); Mean Corpuscular Hgb Conc 33.8 g/dL (32-36); Mean Corpuscular Volume 105.8 fL (80-100); Mean Platelet Volume 9.2 fL (7.4-10.4); Platelet Count 1113 K/uL (130-400); RDW Coefficient of Variation 13.7 % (11.5-14.5); RDW Standard Deviation 53.5 fL (36.4-46.3); Red Blood Count 3.27 M/uL (4.7-6.1); White Blood Count 19.75 K/uL (4.8-10.8)
[2019-03-20 20:44] LABS: Basophils % (auto) 0.5 %; Eosinophils # (auto) 0.36 K/uL (0-0.5); Eosinophils % (auto) 1.8 %; Giant Platelets 1+; Immature Granulocytes # (auto) 0.31 K/uL (0.00-0.02); Immature Granulocytes % (auto) 1.6 %; Lymphocytes # (auto) 1.98 K/uL (1.2-3.4); Monocytes # (auto) 3.95 K/uL (0.11-0.59); Neutrophils # (auto) 13.05 K/uL (1.4-6.5); Neutrophils % (auto) 66.1 %
[2019-03-20] MEDS: AZITHROMYCIN 500 MG in DEXTROSE 5% 250 ML IV SCH (22:16)
[2019-03-21] MEDS: TRAZODONE HCL 50 MG TAB PO SCH ×2 (00:34→23:36)
[2019-03-21] MEDS: VANCOMYCIN HCL 1,250 MG in SODIUM CHLORIDE 0.9% 250 ML IV SCH ×3 (02:21→18:09)
[2019-03-21] MEDS: ACETAMINOPHEN 325 MG TAB PO PRN ×3 (03:27→23:36)
[2019-03-21] MEDS: PIPERACILLIN/TAZOBACTAM 3.375 GM in DEXTROSE 5% 100 ML IV SCH ×3 (04:36→19:50)
[2019-03-21] MEDS ORDERED: Nursing to Pharmacy Communication ONE (05:33)
[2019-03-21 07:57] LABS: Blood Urea Nitrogen 2 mg/dl (7-18); Calcium 9.2 mg/dl (8.5-10.1); Carbon Dioxide 25 mmol/L (21-32); Chloride 104 mmol/L (98-107); Creatinine Clr Calc Pharmacy 218.9 ml/min; Est GFR (African American) > 150.0; Est GFR (Non-African American) 146.3; Glucose 95 mg/dl (70-99); Magnesium 2.3 mg/dl (1.8-2.4); Potassium 3.9 mmol/L (3.5-5.1); Sodium 136 mmol/L (136-145)
[2019-03-21 07:58] LABS: Phosphorus 3.9 mg/dl (2.5-4.9)
--- NOTE | 2019-03-21 08:03 | Progress Note ---
DATE: 03/21/2019 Mr. Poole is in much better spirits today. He was able to sleep in a private room. He still is having right-sided chest pain when I awakened him early this morning, the patient was diaphoretic. His vital signs were stable with tachycardia in the 100s, but his respiratory rate is only 14. His saturations are 94% on room air. He had a temperature yesterday afternoon of 37.9. His last white count was 19,750 yesterday. Platelet count is 1,113,000 which is not surprising given his history of splenectomy. I am going to ask Dr. Sherrie Maria to take a look at him and make sure we should not be doing anything more aggressive from an antiplatelet standpoint. He is scheduled this afternoon for a decortication, which I think is indicated.
[2019-03-21 08:07] LABS: Hematocrit (blood only) 34.8 % (42-52); Hemoglobin 11.6 g/dL (14.0-18.0); Mean Corpuscular Hgb Conc 33.3 g/dL (32-36); Mean Corpuscular Volume 104.2 fL (80-100); Mean Platelet Volume 9.1 fL (7.4-10.4); Platelet Count 1188 K/uL (130-400); RDW Coefficient of Variation 13.7 % (11.5-14.5); RDW Standard Deviation 51.9 fL (36.4-46.3); Red Blood Count 3.34 M/uL (4.7-6.1); White Blood Count 18.56 K/uL (4.8-10.8)
[2019-03-21 08:17] LABS: Basophils % (auto) 0.5 %; Eosinophils # (auto) 0.36 K/uL (0-0.5); Eosinophils % (auto) 1.9 %; Immature Granulocytes # (auto) 0.34 K/uL (0.00-0.02); Immature Granulocytes % (auto) 1.8 %; Lymphocytes # (auto) 2.83 K/uL (1.2-3.4); Lymphocytes % (auto) 15.2 %; Monocytes # (auto) 3.32 K/uL (0.11-0.59); Monocytes % (auto) 17.9 %; Neutrophils # (auto) 11.61 K/uL (1.4-6.5); Neutrophils % (auto) 62.7 %; Pappenheimer Bodies 1+
[2019-03-21] MEDS: SODIUM CHLORIDE 0.9% 1000ML 1,000 ML IV SCH ×2 (08:58→18:09)
[2019-03-21] MEDS: NICOTINE 21 MG/24 HR TDSY TD SCH (10:43)
[2019-03-21] MEDS: MULTIVITAMIN TAB PO SCH (10:43)
[2019-03-21] MEDS: FOLIC ACID 1 MG TAB PO SCH (10:43)
[2019-03-21] MEDS: THIAMINE HCL 100 MG TAB PO SCH (10:43)
[2019-03-21] MEDS: guaiFENesin 600 MG TABCR PO SCH ×2 (10:43→22:05)
[2019-03-21] MEDS: DOCUSATE SODIUM 100 MG CAP PO SCH ×2 (10:43→22:07)
[2019-03-21] MEDS ORDERED: PROPOFOL IV EMULSION 10 MG/ML 20 ML VIAL IV ONE (12:33)
[2019-03-21] MEDS ORDERED: LIDOCAINE HCL 2% 2 ML VIAL/AMP(20MG/ML) INFIL ONE (12:33)
[2019-03-21] MEDS ORDERED: ONDANSETRON INJ 2 MG/ML 2 ML VIAL ONE (12:33)
[2019-03-21] MEDS ORDERED: DEXAMETHASONE SOD INJ 4 MG/ML VIAL ONE (12:33)
[2019-03-21] MEDS ORDERED: ROCURONIUM BROMIDE 10 MG/ML 5 ML VIAL ONE (12:33)
[2019-03-21] MEDS ORDERED: fentaNYL citrate 100 MCG/2 ML VIAL ONE (12:34)
[2019-03-21] MEDS ORDERED: MIDAZOLAM HCL 1 MG/ML 2ML VIAL ONE (12:34)
--- NOTE | 2019-03-21 12:57 | Anesthesiology Consultation ---
Date of Service March 21, 2019 Assessment & Plan (1) Encounter for pre-operative examination: Chart Review Chart Review: Acceptable Risk for Surgery History Surgery Operation Date: 03/21/19 13:00 Proposed Procedures p Right Video Assisted Thoracoscopy with Decortication - Wesly Haynes MD, FACS Height/Weight Height: 5 ft 8 in Weight: 70.7 kg Allergies Allergy/AdvReac Type Severity Reaction Status Date / Time No Known Allergies Allergy Verified 03/19/19 20:25 Medications Home Medications Medication Instructions Recorded Confirmed Last Taken acetaminophen [Tylenol] 650 mg PO BID PRN 03/19/19 03/19/19 03/18/19 calcium carbonate [Tums] 400 mg PO Q4H PRN 03/19/19 03/19/19 Unknown folic acid 1 mg PO DAILY 03/19/19 03/19/19 Unknown guaifenesin [Mucinex] 600 mg PO BID 03/19/19 03/19/19 Unknown hydroxyzine pamoate [Vistaril] 50 mg PO QID PRN 03/19/19 03/19/19 Unknown ibuprofen 800 mg PO TID PRN 03/19/19 03/19/19 03/19/19 07:55 melatonin 3 mg PO HS PRN 03/19/19 03/19/19 03/18/19 multivitamin 1 tab PO DAILY 03/19/19 03/19/19 Unknown thiamine HCl (vitamin B1) 100 mg PO DAILY 03/19/19 03/19/19 Unknown trazodone 25 mg PO HS 03/19/19 03/19/19 Unknown Active Medications Generic Name Dose Route Start Last Admin Trade Name Ann PRN Reason Stop Dose Admin Acetaminophen 650 mg 03/19/19 22:18 03/21/19 10:52 Tylenol PO 04/18/19 22:17 650 mg Q4H PRN Administration Pain or Fever Docusate Sodium 100 mg 03/20/19 09:00 03/21/19 10:43 Colace PO 04/19/19 08:59 100 mg BID NICHOLAS Administration Folic Acid 1 mg 03/20/19 09:00 03/21/19 10:43 Folvite PO 04/19/19 08:59 1 mg DAILY NICHOLAS Administration Guaifenesin 600 mg 03/20/19 09:00 03/21/19 10:43 Mucinex PO 04/19/19 08:59 600 mg BID NICHOLAS Administration Hydroxyzine HCl 50 mg 03/19/19 22:18 03/21/19 10:52 Vistaril PO 04/18/19 22:17 50 mg QID PRN Administration Anxiety Azithromycin 500 mg/ Dextrose 255 mls @ 125 mls/hr 03/20/19 21:00 03/21/19 00:19 IV 03/25/19 23:03 Infused Q24H NICHOLAS Infusion Sodium Chloride 1,000 mls @ 100 mls/hr 03/19/19 22:18 03/21/19 08:58 Nss 1000ml IV 04/18/19 22:17 100 mls/hr .Q10H NICHOLAS Administration Piperacillin Sod/Tazobactam 115 mls @ 28.75 mls/hr 03/20/19 04:00 03/21/19 12:15 Sod 3.375 gm/ Dextrose IV 03/27/19 03:59 28.8 mls/hr Q8H NICHOLAS Administration Protocol Vancomycin HCl 1,250 mg/ 275 mls @ 125 mls/hr 03/21/19 02:00 03/21/19 10:54 Sodium Chloride IV 03/28/19 01:59 125 mls/hr Q8H NICHOLAS Administration Miscellaneous 1 ea 03/20/19 21:00 03/20/19 21:59 Remove Nicoderm Patch N/A 04/19/19 20:59 Not Given HS NICHOLAS Multivitamins 1 tab 03/20/19 09:00 03/21/19 10:43 Multivitamin Tab PO 04/19/19 08:59 1 tab DAILY NICHOLAS Administration Nicotine 21 mg 03/20/19 09:00 03/21/19 10:43 Nicoderm Cq TD 04/19/19 08:59 21 mg QAM NICHOLAS Administration Thiamine HCl 100 mg 03/20/19 09:00 03/21/19 10:43 Vitamin B-1 PO 04/19/19 08:59 100 mg DAILY NICHOLAS Administration Trazodone HCl 25 mg 03/20/19 21:00 03/21/19 00:34 Desyrel PO 04/19/19 20:59 25 mg HS NICHOLAS Administration NPO Date Last Intake of Fluids: 03/20/19 Time Last Intake of Fluids: 23:59 Date Last Intake of Solids: 03/20/19 Time Last Intake of Solids: 23:59 Past Medical History Medical History Alcohol use disorder Hypertension Insomnia Pneumonia loculated effusion Tobacco use disorder Past Family History Family History Unknown Family history non-contributory Past Surgical History Surgical History H/O splenectomy Social History Smoking Status: Current every day smoker tobacco type: cigarettes Smoking cigarettes per day: 20 Do You Dip or Chew Tobacco: No Hx Alcohol Use: Yes Alcohol type: beer alcohol intake frequency: other Alcohol Intake Frequency Comment: 10 drinks/day - no etoh for 3 weeks Hx Substance Use: No substance use type: does not use Physical Exam Vital Signs Last Vital Signs Temp 37.0 C 03/21/19 07:05 Pulse 89 03/21/19 07:05 Resp 16 03/21/19 07:05 BP 138/87 03/21/19 07:05 Pulse Ox 96 03/21/19 07:05 Testing Laboratory Results 03/21/19 07:12 03/21/19 07:12 PT 10.2 Seconds (9.0-12.0) 03/19/19 20:10 INR 1.0 (0.9-1.1) 03/19/19 20:10 APTT 33.4 Seconds (21.0-31.0) H 03/19/19 20:10 Blood Type O Positive 03/20/19 19:22 Antibody Screen NEGATIVE 03/20/19 19:22 03/19/19 20:35 Aerobic Blood Culture - Preliminary Blood No growth in Aerobic bottle after 24 hours. Anaerobic Blood Culture - Preliminary No growth in Anaerobic bottle after 24 hours. 03/19/19 20:10 Aerobic Blood Culture - Preliminary Blood No growth in Aerobic bottle after 24 hours. Anaerobic Blood Culture - Preliminary No growth in Anaerobic bottle after 24 hours. Electrocardiogram Date: 03/20/19 Findings: + ST @ (104) Chest X-Ray Date: 03/20/19 Findings: + infiltrate (right base) and + pleural effusion (parapneumonic )
[2019-03-21] MEDS ORDERED: SODIUM CHLORIDE 0.9% PF 50 ML VIAL ONE (13:03)
[2019-03-21] MEDS ORDERED: BUPIVACAINE 0.5 % 5 MG/1 ML MPF 30ML VIAL ONE (13:03)
[2019-03-21] MEDS ORDERED: BUPIVACAINE LIPOSOME 1.3% 266 MG/20 ML VIAL ONE (13:04)
[2019-03-21] MEDS ORDERED: ONDANSETRON INJ 2 MG/ML 2 ML VIAL IV PRN (13:37)
[2019-03-21] MEDS ORDERED: ATROPINE SULFATE 0.1 MG/ML 10ML SYR IV PRN (13:37)
[2019-03-21] MEDS ORDERED: LABETALOL HCL IV 5 MG/ML 20ML IV PRN (13:37)
[2019-03-21] MEDS ORDERED: KETOROLAC 30 MG/ML VIAL IV PRN (13:37)
[2019-03-21] MEDS ORDERED: HYDROmorphone INJ 1 MG/ML SYRINGE IV PRN (13:37)
--- NOTE | 2019-03-21 15:34 | Post Operative Brief Note ---
Immediate Post Op Note v1 Date of Surgery March 21, 2019 Pre & Post Diagnosis Operation Date: 03/21/19 13:00 Pre-Op Diagnosis: Right empyema. Post-Op Diagnosis: Right empyema. Procedure Operation Date: 03/21/19 13:00 Actual Procedures p Right Video Assisted Thoracoscopy with Limited Decortication(Right) - Wesly Haynes MD, FACS Surgeon Wesly Haynes MD, FACS Canvas Cutter Machine Jt Willis Estimated Blood Loss 40 Findings Consistent with Post-Op Diagnosis Drains Chest Tube and Morocho Catheter
--- NOTE | 2019-03-21 15:56 | Anesthesiology Progress Note ---
Date of Service March 21, 2019 Anesthesia Post Procedure Vital Signs Vital Signs: Temp Pulse Resp BP Pulse Ox 03/21/19 13:25 37.1 C 94 H 20 124/85 96 03/21/19 13:23 36.7 C 59 L 16 105/66 95 03/21/19 07:05 37.0 C 89 16 138/87 96 03/20/19 22:52 37.6 C H 109 H 14 131/88 94 03/20/19 19:54 98 H 19 98 03/20/19 16:15 37.9 C H 116 H 18 135/89 94 Pain Intensity Right Ribs: Pain Intensity: 4 Transfer of Care Handoff Completed per policy Notes Mental Status: alert / awake / arousable and participated in evaluation Patient Amnestic to Procedure: Yes Nausea / Vomiting: adequately controlled Pain: adequately controlled Airway Patency, RR, SpO2: stable & adequate BP & HR: stable & adequate Hydration State: stable & adequate Anesthetic Complications: no major complications apparent
--- NOTE | 2019-03-21 16:17 | XRay Report ---
XR chest 1V portable CLINICAL HISTORY: 33 years-old Male presenting with surgery. TECHNIQUE: Portable upright AP view of the chest was obtained. COMPARISON: 03/19/2019. FINDINGS: Cardiac silhouette top normal in size. Interval placement of a right pleural drain, which is position ed at the right upper lung. Associated small right apical pneumothorax. Associated soft tissue emphys christofer along the inferior right lateral chest wall. Interval decrease in the right basilar opacity. No p leural effusion is evident. Left lung and pleural space clear. Osseous structures normal. Upper abdom en normal. IMPRESSION: 1. Right pleural drain in place with associated small right apical pneumothorax. 2. Decreased right basilar opacity, likely correlating with drainage of the loculated right pleural effusion. Electronically signed by: Alireza Sullivan M.D. 03/21/2019 4:15 PM
[2019-03-21] MEDS: OXYCODONE HCL IR 5 MG TAB (IMMEDIATE RELEASE) PO PRN (16:55)
--- NOTE | 2019-03-21 17:10 | Hospitalist Progress Note ---
Date of Service March 21, 2019 Assessment & Plan (1) Sepsis: Sepsis: HCAP Possible Empyema Has had antibiotics for about 2 weeks in another facility Started on broad spectrum IV Antibiotics (Vanco, Zosyn, azithromycin) Blood cultures obtained -cultures pending CT surgery consulted for possible drainage of empyema Awaiting records from [facility]-reviewed Status post Right Video Assisted Thoracoscopy with Limited Decortication(Right) - eWsly Haynes MD, FACS 03/21 Remains stable following the procedure Chest x-ray revealed very small right apical pneumothorax in the right chest tube in situ Ongoing Diarrhea: H/O IV ABx at [facility] Check stool for C. difficile-pending Likely overflow diarrhea secondary to moderate constipation Add stool softeners Alcohol abuse H/O DTs and recent admission to inpatient rehab facility Continue thiamine and folic acid Needs alcohol rehab placement when stable Tobacco use disorder Nicotine patch Counseled to quit smoking Thrombocytosis Macrocytosis In setting of S/P splenectomy, trauma, ongoing infection Obtain peripheral smear Discussed with hematology Thrombocytosis is secondary to splenectomy and current infection Will observe Microcytic anemia Likely folic acid deficiency due to alcohol use Continue folic acid Monitor Insomnia Continue Home meds DVT Px: SCDs Encourage to ambulate Code Status: Full Code Disposition: Needs alcohol rehab facility placement when stable Discussed with the patient in detail Subjective 03/20 The patient was seen and examined in the telemetry unit Patient is a 33-year-old male with history of alcohol use disorder, tobacco use disorder, Insomnia, history of DTs, history of traumatic pneumothorax, traumatic subdural hemorrhage, S/P splenectomy and other problems who was recently admitted at [facility] for bilateral pneumonia and was discharged on 03/18 to alcohol rehab facility; presents with history of ongoing fever, diarrhea, right-sided pleuritic chest pain, cough with clear expectoration since 3 weeks duration Noted to have pneumonia with very high white count and possible empyema He has been feeling a little better and so far compliant with management plan 03/21 Patient was seen and examined the medical floor Chief complaint history of ongoing chills and weakness Also has pain on deep breathing mostly on the left side White count remains elevated Awaiting to go for thoracentesis/decortication sometime this afternoon Review of Systems Review of Systems: All systems reviewed and are unremarkable except as noted below Constitutional: + chills, + body aches, + fatigue and + weakness; no fever Gastrointestinal: + abdominal pain (Left quadrants) Physical Exam Physical Exam: Minimal distress at rest with chills and sweating Constitutional: + ill appearing Eyes: PERRL, conjunctivae normal, anicteric sclerae ENMT: external ear and nose normal, oropharynx normal Neck: trachea midline, no thyromegaly Respiratory: normal respiratory effort; no respiratory distress Auscultation: + diminished lung sounds (Right base associated with crackles) Cardiovascular: Rate/Rhythm: regular rate and regular rhythm Heart Sounds: no murmur Gastrointestinal (Abdomen): Inspection/Auscultation: abdomen normal to inspection Percussion/Palpation: abdomen soft; abdomen nontender Musculoskeletal: No acute arthritis in any joints Neurologic: PERRL, EOMI, accommodation nl, no face palsy, no dysarthria Lymphatic: no cervical or axillary lymphadenopathy Results & Data Vital Signs (Past 12 Hours) Vital Signs Temp Pulse Pulse Resp BP BP Pulse Ox 03/21/19 16:20 36.2 C L 03/21/19 16:15 36.2 C L 89 16 120/82 93 03/21/19 16:05 86 16 118/74 93 03/21/19 15:55 79 16 114/67 98 03/21/19 15:46 36.4 C L 81 16 113/59 L 96 03/21/19 13:25 37.1 C 94 H 20 124/85 96 03/21/19 13:23 36.7 C 59 L 16 105/66 95 03/21/19 07:05 37.0 C 89 16 138/87 96 Laboratory Results Short CBC 03/20/19 03/21/19 Range/Units 19:22 07:12 WBC 19.75 H 18.56 H (4.8-10.8) K/uL Hgb 11.7 L 11.6 L (14.0-18.0) g/dL Hct 34.6 L 34.8 L (42-52) % Plt Count 1113 H* 1188 H* (130-400) K/uL BMP 03/20/19 03/21/19 19:22 07:12 Sodium 136 136 Potassium 4.2 3.9 Chloride 105 104 Carbon Dioxide 24 25 BUN 4 L 2 L Creatinine 0.55 L 0.46 L Glucose 126 H 95 Calcium 8.4 L 9.2 Cardiac Enzymes 03/20/19 Range/Units 19:22 Troponin I < 0.015 (0-0.045) ng/ml Medications Administered Current Inpatient Medications Acetaminophen (Tylenol) 650 mg PO Q4H PRN PRN Reason: Pain or Fever Stop: 04/18/19 22:17 Last Admin: 03/21/19 10:52 Dose: 650 mg Documented by: Albuterol (Duoneb) 3 ml NEB Q4R PRN PRN Reason: shortness of breath Stop: 04/18/19 22:17 Docusate Sodium (Colace) 100 mg PO BID [facility] Stop: 04/19/19 08:59 Last Admin: 03/21/19 10:43 Dose: 100 mg Documented by: Folic Acid (Folvite) 1 mg PO DAILY [facility] Stop: 04/19/19 08:59 Last Admin: 03/21/19 10:43 Dose: 1 mg Documented by: Guaifenesin (Mucinex) 600 mg PO BID [facility] Stop: 04/19/19 08:59 Last Admin: 03/21/19 10:43 Dose: 600 mg Documented by: Hydroxyzine HCl (Vistaril) 50 mg PO QID PRN PRN Reason: Anxiety Stop: 04/18/19 22:17 Last Admin: 03/21/19 10:52 Dose: 50 mg Documented by: Azithromycin 500 mg/ Dextrose 255 mls @ 125 mls/hr IV Q24H [facility] Stop: 03/25/19 23:03 Last Infusion: 03/21/19 00:19 Dose: Infused Documented by: Sodium Chloride (Nss 1000ml) 1,000 mls @ 100 mls/hr IV .Q10H [facility] Stop: 04/18/19 22:17 Last Admin: 03/21/19 08:58 Dose: 100 mls/hr Documented by: Piperacillin Sod/Tazobactam (Sod 3.375 gm/ Dextrose) 115 mls @ 28.75 mls/hr IV Q8H [facility]; Protocol Stop: 03/27/19 03:59 Last Infusion: 03/21/19 17:02 Dose: Infused Documented by: Vancomycin HCl 1,250 mg/ (Sodium Chloride) 275 mls @ 125 mls/hr IV Q8H [facility] Stop: 03/28/19 01:59 Last Infusion: 03/21/19 13:30 Dose: Infused Documented by: Ketorolac Tromethamine (Toradol) 30 mg IV Q8 NICHOLAS Stop: 03/23/19 14:01 Miscellaneous (Remove Nicoderm Patch) 1 ea N/A HS NICHOLAS Stop: 04/19/19 20:59 Last Admin: 03/20/19 21:59 Dose: Not Given Documented by: Miscellaneous Information (Consult) 1 ea N/A UD PRN PRN Reason: Consult Stop: 04/18/19 22:17 Miscellaneous Information (Consult) 1 ea N/A UD PRN PRN Reason: Consult Stop: 04/18/19 22:28 Morphine Sulfate (Morphine Sulfate) 1 mg IV Q1HWA PRN PRN Reason: Pain Stop: 04/04/19 16:28 Multivitamins (Multivitamin Tab) 1 tab PO DAILY NICHOLAS Stop: 04/19/19 08:59 Last Admin: 03/21/19 10:43 Dose: 1 tab Documented by: Nicotine (Nicoderm Cq) 21 mg TD QAM [facility] Stop: 04/19/19 08:59 Last Admin: 03/21/19 10:43 Dose: 21 mg Documented by: Oxycodone HCl (Roxicodone Immediate Rel) 5 mg PO Q4 PRN PRN Reason: Pain Stop: 04/04/19 16:28 Last Admin: 03/21/19 16:55 Dose: 5 mg Documented by: Thiamine HCl (Vitamin B-1) 100 mg PO DAILY [facility] Stop: 04/19/19 08:59 Last Admin: 03/21/19 10:43 Dose: 100 mg Documented by: Trazodone HCl (Desyrel) 25 mg PO [facility] Stop: 04/19/19 20:59 Last Admin: 03/21/19 00:34 Dose: 25 mg Documented by:
[2019-03-21] MEDS ORDERED: VANCOMYCIN TROUGH ONE (17:30)
[2019-03-21] MEDS: MoRPHine SULFATE 2 MG/ML CARP IV PRN (22:06)
[2019-03-21] MEDS: KETOROLAC 30 MG/ML VIAL IV SCH (22:06)
[2019-03-21] MEDS: AZITHROMYCIN 500 MG in DEXTROSE 5% 250 ML IV SCH (22:07)
[2019-03-21] MEDS ORDERED: POTASSIUM CHLORIDE 20 MEQ TABCR PO STA (23:07)
[2019-03-22] MEDS ORDERED: VANCOMYCIN TROUGH ONE ×2 (01:30→09:30)
[2019-03-22] MEDS: MoRPHine SULFATE 2 MG/ML CARP IV PRN ×4 (01:39→12:13)
[2019-03-22] MEDS: VANCOMYCIN HCL 1,250 MG in SODIUM CHLORIDE 0.9% 250 ML IV SCH ×4 (01:40→21:01)
--- NOTE | 2019-03-22 01:40 | Operative Report ---
DATE OF OPERATION: 03/21/2019 PREOPERATIVE DIAGNOSIS: Right empyema. POSTOPERATIVE DIAGNOSIS: Right empyema. PROCEDURE: Right thoracoscopy with limited decortication and evacuation of empyema contents. SURGEON: Wesly Haynes MD. CLUB ATTENDANT: Geraldine Lua, surgical services tech. ANESTHESIA: General anesthesia, endotracheal intubation using a double lumen tube. INDICATIONS OF PROCEDURE AND FINDINGS: This is a 33-year-old male who has issues with alcohol abuse who developed an apparent pneumonia, was felt to be aspiration and was treated with long course of antibiotic at [facility]. He was transferred to an alcohol rehabilitation unit and after being there for 2 days, patient had right-sided chest pain which was excruciating and was febrile. He was brought to the Emergency Room here and admitted and found to have a complicated thickened effusion which was loculated on the right and also had some air in it. This appeared to be an empyema. He certainly had the clinical course consistent with empyema. For this reason, we elected to bring him to surgery. On 03/21/2019, the patient was brought to the operating room and underwent an uncomplicated right thoracoscopy with evacuation of pleural empyema. We sent cultures also. This actually went very nicely with negligible blood loss. We used Exparel as a block, 266 mg was mixed with 250 mL of normal saline, and 30 mL of 0.25% Marcaine. The solution was then injected into all 3 port sites and we also used it to perform intercostal block. He tolerated it well, was extubated in the room with negligible blood loss with a very small air leak. DESCRIPTION OF PROCEDURE: The patient was brought to operating room and laid in supine position. General anesthesia induced, endotracheal intubation was performed with a double lumen tube. The patient was placed in left lateral decubitus position, right chest prepped and draped in usual sterile fashion. After appropriate timeout had been called and prophylactic antibiotics given. A 5 mm port was placed posterior to the scapula just above the tip. Upon going in, we could see there were adhesions and there was inflammatory process inferiorly, but we were up above that. There were some adhesions of the upper lobe and middle lobe to the chest wall, we were able to get around them to see our anterior port and we put another 5 mm port anterior to the latissimus dorsi muscle above the tip of the scapula. With these 2 ports, we were able to take down adhesions using a cotton tip Kitners. This worked out very nicely until we got down to the diaphragm. We then placed a 12 mm port above the diaphragm and using these 3 we were able to clean this off nicely. We performed a decortication of the right lower lobe going into the fissure and we removed all this also. He had complicated collections posteriorly as well as along the diaphragm and I removed all of these. We meticulously performed a decortication by peeling this off of the lung. We spent a good deal of time doing this and after we have done it, the patient's lung was expanded and it actually looked quite good. We had mixed 266 mg of Exparel and 20 mL of fluid with 30 mL of 0.25% Marcaine in 250 mL of normal saline. We injected into each of the 3 port sites before making them and then we performed a block from the 2nd to 11th rib by injecting the intercostal spaces after a thoracoscopic guidance. It actually came out quite nicely with very little blood loss. A 24-Lithuanian chest tube was placed through the 12 mm port and directed towards the apex and held in place with heavy silk suture. This was held in place with heavy silk suture. A 4-0 Monocryl was used in running subcuticular fashion to approximate the wound edges. The patient tolerated it very well. I attest to the content of the Intraoperative Record and any orders documented therein. Any exception s are noted below.
[2019-03-22] MEDS: OXYCODONE HCL IR 5 MG TAB (IMMEDIATE RELEASE) PO PRN ×3 (02:37→17:25)
[2019-03-22] MEDS: SODIUM CHLORIDE 0.9% 1000ML 1,000 ML IV SCH (03:59)
[2019-03-22] MEDS: PIPERACILLIN/TAZOBACTAM 3.375 GM in DEXTROSE 5% 100 ML IV SCH ×3 (04:00→19:29)
[2019-03-22] MEDS: KETOROLAC 30 MG/ML VIAL IV SCH ×3 (05:48→21:01)
--- NOTE | 2019-03-22 07:32 | XRay Report ---
XR chest 1V portable HISTORY: Postop. s/p decortication COMPARISON: Chest 03/21/2019. FINDINGS: Right-sided chest tube remains unchanged in position. Small amount of right chest wall subc utaneous emphysema persists. The heart remains mildly enlarged. Hazy bibasilar densities persist. Tin y right apical pneumothorax with a pleural gap of 5 mm. This has slightly decreased in size. No pleur al effusions. IMPRESSION: Slight decrease in size in a tiny right pneumothorax. Right-sided chest tube remains unchanged in pos ition. Electronically signed by: Devaughn Osborn M.D. 03/22/2019 7:30 AM
[2019-03-22] MEDS: FOLIC ACID 1 MG TAB PO SCH (07:39)
[2019-03-22] MEDS: THIAMINE HCL 100 MG TAB PO SCH (07:39)
[2019-03-22] MEDS: NICOTINE 21 MG/24 HR TDSY TD SCH (07:39)
[2019-03-22] MEDS: guaiFENesin 600 MG TABCR PO SCH ×2 (07:39→20:49)
[2019-03-22] MEDS: MULTIVITAMIN TAB PO SCH (07:39)
[2019-03-22] MEDS: ASPIRIN 325 MG ECTAB PO SCH (07:40)
[2019-03-22] MEDS: DOCUSATE SODIUM 100 MG CAP PO SCH ×2 (07:40→20:47)
--- NOTE | 2019-03-22 07:49 | XRay Report ---
XR chest 1V portable HISTORY: tube removal COMPARISON: Chest 03/22/2019. FINDINGS: Interval removal of the right-sided chest tube. Slight increase in size in the small right pneumothorax. Bibasilar hazy densities persist. The heart remains enlarged. No pleural effusions. IMPRESSION: Slight increase in size in the small right pneumothorax status post chest tube removal. Electronically signed by: Devaughn Osborn M.D. 03/22/2019 7:48 AM
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
[2019-03-22] MEDS: ACETAMINOPHEN 325 MG TAB PO PRN ×2 (10:01→21:09)
[2019-03-22 10:02] LABS: Alanine Aminotransferase 34 U/L (12-78); Aspartate Aminotransferase 20 U/L (15-37); BUN Creatinine Ratio 9.8 (10-20); Blood Urea Nitrogen 4 mg/dl (7-18); Calcium 8.7 mg/dl (8.5-10.1); Carbon Dioxide 24 mmol/L (21-32); Chloride 105 mmol/L (98-107); Creatinine Clr Calc Pharmacy 251.8 ml/min; Est GFR (African American) > 150.0; Est GFR (Non-African American) > 150.0; Glucose 105 mg/dl (70-99); Sodium 136 mmol/L (136-145)
[2019-03-22 10:04] LABS: Albumin Globulin Ratio 0.5 (0.9-2); Alkaline Phosphatase 80 U/L (45-117); Bilirubin,Total 0.4 mg/dl (0.2-1); Globulin 4.1 gm/dl (2.5-4.0); Total Protein 6.1 gm/dl (6.4-8.2)
[2019-03-22 10:46] LABS: Hematocrit (blood only) 31.8 % (42-52); Hemoglobin 10.6 g/dL (14.0-18.0); Mean Corpuscular Hgb Conc 33.3 g/dL (32-36); Mean Platelet Volume 8.9 fL (7.4-10.4); Platelet Count 1223 K/uL (130-400); RDW Coefficient of Variation 13.8 % (11.5-14.5); RDW Standard Deviation 53.2 fL (36.4-46.3); White Blood Count 23.76 K/uL (4.8-10.8)
[2019-03-22 11:22] LABS: Basophils # (auto) 0.07 K/uL (0-0.2); Basophils % (auto) 0.3 %; Eosinophils # (auto) 0.28 K/uL (0-0.5); Eosinophils % (auto) 1.2 %; Immature Granulocytes # (auto) 0.27 K/uL (0.00-0.02); Immature Granulocytes % (auto) 1.1 %; Lymphocytes # (auto) 3.48 K/uL (1.2-3.4); Lymphocytes % (auto) 14.6 %; Monocytes # (auto) 3.87 K/uL (0.11-0.59); Monocytes % (auto) 16.3 %; Neutrophils # (auto) 15.79 K/uL (1.4-6.5); Neutrophils % (auto) 66.5 %; Pappenheimer Bodies 2+
--- NOTE | 2019-03-22 12:19 | Pharmacy Report ---
Pharmacy Abx Dose Short Note - Date of Service March 22, 2019 - Assessment & Plan Laboratory Tests 03/20/19 03/22/19 19:22 09:24 Vancomycin Trough 5.6 6.6 Assessment * 33 year old M receiving VANCOMYCIN + ZOSYN + AZITHROMYCIN for treatment of pneumonia with empyema * Patient has recent h/o pneumonia w/ inpatient treatment * h/o splenectomy and heavy alcohol use and was recently admit to rehab facility * POD1 Right thoracoscopy with evacuation of empyema contents * MRSA nasal swab negative * Day #4 antimicrobial therapy * Currently on Vancomycin 1750mg IV Q8H * Trough levels remain subtherapeutic, pt has been refusing blood draws therefore monitoring has been difficult Plan Vancomycin * Trough level of 6.6 mcg/mL is subtherapeutic * Change to Vancomycin 1750 mg IV every 6 hours * Goal trough level for pulmonary source : 15 to 20 mcg/mL * Trough level ordered for: 03/23/19 prior to 1000 dose Zosyn * BMI < 35, eCrCl > 20 * continue 3.375gm ext-infusion Q 8 hrs Pharmacy will continue to follow and will adjust dose/frequency as necessary. Thank you.
--- NOTE | 2019-03-22 14:37 | Anesthesiology Progress Note ---
Date of Service March 22, 2019 Anesthesia Post Procedure Vital Signs Vital Signs: Temp Pulse Pulse Resp BP Pulse Ox 03/22/19 14:05 36.6 C 97 H 17 129/78 95 03/22/19 07:25 37 C 103 H 19 157/96 H 94 03/21/19 22:43 37.7 C H 118 H 03/21/19 22:22 37.9 C H 20 154/94 H 95 03/21/19 20:38 38.0 C H 100 H 18 142/93 H 94 03/21/19 19:35 37.0 C 107 H 16 129/78 94 03/21/19 18:32 108 H 16 135/85 95 03/21/19 17:38 102 H 16 125/81 92 03/21/19 16:30 37.0 C 95 H 18 133/85 91 03/21/19 16:20 36.2 C L 03/21/19 16:15 36.2 C L 89 16 120/82 93 03/21/19 16:05 86 16 118/74 93 03/21/19 15:55 79 16 114/67 98 03/21/19 15:46 36.4 C L 81 16 113/59 L 96 Pain Intensity Right Ribs: Pain Intensity: 6 Notes Mental Status: alert / awake / arousable Patient Amnestic to Procedure: Yes Nausea / Vomiting: adequately controlled Pain: adequately controlled Airway Patency, RR, SpO2: stable & adequate BP & HR: stable & adequate Hydration State: stable & adequate Anesthetic Complications: no major complications apparent and Pt Satisfied with anesthetic care
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
--- NOTE | 2019-03-22 17:19 | Progress Note ---
DATE: 03/22/2019 Mr. Poole was seen today. He is complaining of excruciating pain, but we removed his chest tube without difficulty. Incisions were clean. His x-ray looked quite good. We are not growing anything from all of the gelatinous material and other intrapleural contents that we removed yesterday. Not surprising given that he had been on antibiotics. Quite pleased with him. He was able to ambulate in the hallway. His white count remains elevated; however, I believe some of this is due to margination stress. We will continue to follow along with him, but I feel better about him.
[2019-03-22] MEDS: CHLORASEPTIC 1.4% SOLN 180 ML BTL MT PRN (20:47)
[2019-03-23] MEDS: MoRPHine SULFATE 2 MG/ML CARP IV PRN ×2 (00:06→23:00)
[2019-03-23] MEDS: AZITHROMYCIN 500 MG in DEXTROSE 5% 250 ML IV SCH (00:06)
[2019-03-23] MEDS: TRAZODONE HCL 50 MG TAB PO SCH ×2 (00:06→23:00)
[2019-03-23] MEDS: VANCOMYCIN HCL 1,250 MG in SODIUM CHLORIDE 0.9% 250 ML IV SCH ×4 (03:26→23:00)
[2019-03-23] MEDS: PIPERACILLIN/TAZOBACTAM 3.375 GM in DEXTROSE 5% 100 ML IV SCH ×3 (03:26→21:16)
[2019-03-23] MEDS: OXYCODONE HCL IR 5 MG TAB (IMMEDIATE RELEASE) PO PRN ×2 (03:33→17:02)
[2019-03-23] MEDS: KETOROLAC 30 MG/ML VIAL IV SCH ×2 (05:34→13:52)
[2019-03-23] MEDS: FOLIC ACID 1 MG TAB PO SCH (07:23)
[2019-03-23] MEDS: ASPIRIN 325 MG ECTAB PO SCH (07:23)
[2019-03-23] MEDS: MULTIVITAMIN TAB PO SCH (07:24)
[2019-03-23] MEDS: guaiFENesin 600 MG TABCR PO SCH ×2 (07:24→21:15)
[2019-03-23] MEDS: THIAMINE HCL 100 MG TAB PO SCH (07:24)
[2019-03-23] MEDS: NICOTINE 21 MG/24 HR TDSY TD SCH (07:25)
[2019-03-23] MEDS: DOCUSATE SODIUM 100 MG CAP PO SCH ×2 (07:25→21:20)
[2019-03-23] MEDS ORDERED: VANCOMYCIN TROUGH ONE ×2 (09:30→15:30)
--- NOTE | 2019-03-23 12:46 | Progress Note ---
DATE: 03/23/2019 Mr. Poole was seen today 2 days status post his decortication and he looks great. It is the happiest I have seen him in the hospital. He does still complain of pain, this would be expected; however, he has been walking in the hallway. This is the first time I have seen this patient when he was not diaphoretic. I am quite pleased with him. I will allow him to remove his dressings tomorrow and take a shower. I am quite pleased with his recovery.
[2019-03-23] MEDS: CHLORASEPTIC 1.4% SOLN 180 ML BTL MT PRN (13:02)
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
--- NOTE | 2019-03-23 18:49 | Pharmacy Report ---
Pharmacy Abx Dose Short Note - Date of Service March 23, 2019 - Assessment & Plan Assessment * 33 year old M receiving VANCOMYCIN + ZOSYN + AZITHROMYCIN for treatment of pneumonia with empyema * Patient has recent h/o pneumonia w/ inpatient treatment * h/o splenectomy and heavy alcohol use and was recently admit to rehab facility * POD1 Right thoracoscopy with evacuation of empyema contents * MRSA nasal swab negative * Day #5 antimicrobial therapy * Currently on Vancomycin 1250mg IV Q8H * Trough levels remain subtherapeutic, pt has been refusing blood draws therefore monitoring has been difficult Plan Vancomycin * Trough level of 6.2 mcg/mL is subtherapeutic, but patient refused his 1000 dose so this level was expected to be on the lower end. * Continue dose of 1250 mg IV every 6 hours * Goal trough level for Pulm: 15 to 20 mcg/mL * Trough level ordered for: 03/24/19 at 0930 Pharmacy will continue to follow and will adjust dose/frequency as necessary. Thank you.
[2019-03-23] MEDS: ACETAMINOPHEN 325 MG TAB PO PRN (21:31)
[2019-03-24] MEDS: MoRPHine SULFATE 2 MG/ML CARP IV PRN ×2 (00:37→23:27)
[2019-03-24] MEDS: AZITHROMYCIN 500 MG in DEXTROSE 5% 250 ML IV SCH (01:35)
[2019-03-24] MEDS: VANCOMYCIN HCL 1,250 MG in SODIUM CHLORIDE 0.9% 250 ML IV SCH ×2 (03:35→10:03)
[2019-03-24] MEDS: PIPERACILLIN/TAZOBACTAM 3.375 GM in DEXTROSE 5% 100 ML IV SCH ×3 (05:19→21:19)
[2019-03-24] MEDS: THIAMINE HCL 100 MG TAB PO SCH (09:13)
[2019-03-24] MEDS: FOLIC ACID 1 MG TAB PO SCH (09:13)
[2019-03-24] MEDS: ASPIRIN 325 MG ECTAB PO SCH (09:13)
[2019-03-24] MEDS: DOCUSATE SODIUM 100 MG CAP PO SCH ×2 (09:13→21:17)
[2019-03-24] MEDS: guaiFENesin 600 MG TABCR PO SCH ×2 (09:14→21:18)
[2019-03-24] MEDS: NICOTINE 21 MG/24 HR TDSY TD SCH (09:14)
[2019-03-24] MEDS: MULTIVITAMIN TAB PO SCH (09:14)
[2019-03-24] MEDS ORDERED: VANCOMYCIN TROUGH ONE (09:30)
[2019-03-24 10:16] LABS: Hemoglobin 12.5 g/dL (14.0-18.0); Mean Corpuscular Hgb Conc 33.8 g/dL (32-36); Mean Corpuscular Volume 103.6 fL (80-100); Mean Platelet Volume 9.6 fL (7.4-10.4); Platelet Count 1189 K/uL (130-400); RDW Coefficient of Variation 13.5 % (11.5-14.5); RDW Standard Deviation 51.4 fL (36.4-46.3); Red Blood Count 3.57 M/uL (4.7-6.1); White Blood Count 16.47 K/uL (4.8-10.8)
[2019-03-24 10:34] LABS: Basophils # (auto) 0.17 K/uL (0-0.2); Eosinophils # (auto) 0.53 K/uL (0-0.5); Eosinophils % (auto) 3.2 %; Immature Granulocytes # (auto) 0.22 K/uL (0.00-0.02); Immature Granulocytes % (auto) 1.3 %; Lymphocytes # (auto) 3.18 K/uL (1.2-3.4); Lymphocytes % (auto) 19.3 %; Monocytes % (auto) 9.7 %; Neutrophils # (auto) 10.77 K/uL (1.4-6.5); Neutrophils % (auto) 65.5 %
[2019-03-24 10:43] LABS: Creatinine Clr Calc Pharmacy 162.4 ml/min; Est GFR (African American) > 150.0; Est GFR (Non-African American) 129.4
[2019-03-24 10:45] LABS: BUN Creatinine Ratio 4.3 (10-20); Blood Urea Nitrogen 2 mg/dl (7-18); Calcium 9.4 mg/dl (8.5-10.1); Carbon Dioxide 27 mmol/L (21-32); Chloride 102 mmol/L (98-107); Creatinine Clr Calc Pharmacy 176.7 ml/min; Est GFR (African American) > 150.0; Glucose 102 mg/dl (70-99); Potassium 3.9 mmol/L (3.5-5.1); Sodium 137 mmol/L (136-145)
--- NOTE | 2019-03-24 11:52 | Progress Note ---
DATE: 03/24/2019 The patient was seen today. I removed all of his dressings and incisions are clean. I have allowed him to shower. He looks very good. From a surgical standpoint, he can be discharged at any time and I will not need to follow up with him.
[2019-03-24] MEDS ORDERED: SODIUM CHLORIDE 0.65% NA SOLN 45 ML (OCEAN) PRN (15:37)
[2019-03-24] MEDS: ACETAMINOPHEN 325 MG TAB PO PRN ×2 (16:03→21:32)
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
[2019-03-24] MEDS: OXYCODONE HCL IR 5 MG TAB (IMMEDIATE RELEASE) PO PRN (21:18)
[2019-03-24] MEDS: TRAZODONE HCL 50 MG TAB PO SCH (23:27)
[2019-03-25] MEDS: AZITHROMYCIN 500 MG in DEXTROSE 5% 250 ML IV SCH (00:53)
[2019-03-25] MEDS: OXYCODONE HCL IR 5 MG TAB (IMMEDIATE RELEASE) PO PRN ×3 (03:19→15:39)
[2019-03-25] MEDS: PIPERACILLIN/TAZOBACTAM 3.375 GM in DEXTROSE 5% 100 ML IV SCH ×3 (05:19→21:39)
[2019-03-25 07:57] LABS: Hematocrit (blood only) 35.7 % (42-52); Hemoglobin 11.9 g/dL (14.0-18.0); Mean Corpuscular Hgb Conc 33.3 g/dL (32-36); Mean Corpuscular Volume 103.2 fL (80-100); Mean Platelet Volume 8.9 fL (7.4-10.4); Platelet Count 1139 K/uL (130-400); RDW Coefficient of Variation 13.8 % (11.5-14.5); Red Blood Count 3.46 M/uL (4.7-6.1); White Blood Count 17.27 K/uL (4.8-10.8)
[2019-03-25 08:10] LABS: Basophils # (auto) 0.18 K/uL (0-0.2); Eosinophils # (auto) 0.72 K/uL (0-0.5); Eosinophils % (auto) 4.2 %; Immature Granulocytes % (auto) 1.7 %; Lymphocytes # (auto) 3.17 K/uL (1.2-3.4); Lymphocytes % (auto) 18.4 %; Monocytes # (auto) 2.07 K/uL (0.11-0.59); Neutrophils # (auto) 10.83 K/uL (1.4-6.5); Neutrophils % (auto) 62.7 %
[2019-03-25 08:11] LABS: Creatinine Clr Calc Pharmacy 167.8 ml/min; Est GFR (African American) > 150.0; Est GFR (Non-African American) 131.2
[2019-03-25] MEDS: DOCUSATE SODIUM 100 MG CAP PO SCH ×2 (08:58→21:01)
[2019-03-25] MEDS: NICOTINE 21 MG/24 HR TDSY TD SCH (09:00)
[2019-03-25] MEDS: FOLIC ACID 1 MG TAB PO SCH (09:00)
[2019-03-25] MEDS: guaiFENesin 600 MG TABCR PO SCH ×2 (09:00→21:02)
[2019-03-25] MEDS: MULTIVITAMIN TAB PO SCH (09:00)
[2019-03-25] MEDS: THIAMINE HCL 100 MG TAB PO SCH (09:00)
[2019-03-25] MEDS: ASPIRIN 325 MG ECTAB PO SCH (09:00)
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
--- NOTE | 2019-03-25 10:56 | Infectious Disease Consult ---
Date of Consultation March 25, 2019 Assessment & Plan (1) Empyema: s/p drainage, 1 culture + for rare gpc, unclear significance. suspect aspiration due to etoh use. can continue zosyn for now, will stop azithro. follow ID gpc but hopefully can transition to po Augmentin 875mg po bid, will need 3 weeks total. Hopefully able to d/c to rehab tomorrow as planned, afebrile since chest tube placement. WBC remains elevated, as do platelets, suspect combination of infection and splenectomy for both increases. History of Present Illness Attending Physician: Josef Meyer MD pt [facility] after nursing noted decreased breath sounds on right side. He was also having chest pain. Per H&P he was recently admitted at [facility] and treated for PNA, he was then d/c to alcohol rehab. Unclear what abx he received, unclear if any + cultures. He had CTA in ER that showed a right sided loculated effusion, he had ct surgery eval and chest tube, fluid and lung cultures obtained, pleural fluid culture growing rare gpc, ID pending, all other routine, fungal and afb cultures negative. he was initially admitted due to fall, unclear if he aspirated. he is currently on zosyn and azithro, also received vanco, recently stopped. tolerating abx. Admitted on 03/19 - tmax 37.9, 03/20 37.9, 03/21 38. He has been afebrile since 03/22. Chest tube done on 03/21. Blood cultures from ER negative. His platelets are elevated (h/o splenectomy) and heme onc following. per chart, likely d/c in am. chest tube now out. Initial wbc 23, now 17. He is sleeping on my exam, he aroused easily but stated that he only had 3 hours of sleep and he did not want to discuss care at this time as he did not feel he had adequate rest. Refused to answer any questions and refused majority of PE. Allergies Allergy/AdvReac Type Severity Reaction Status Date / Time No Known Allergies Allergy Verified 03/19/19 20:25 Home Medications Home Medications Medication Instructions Recorded Confirmed Type acetaminophen [Tylenol] 650 mg PO BID PRN 03/19/19 03/19/19 History calcium carbonate [Tums] 400 mg PO Q4H PRN 03/19/19 03/19/19 History folic acid 1 mg PO DAILY 03/19/19 03/19/19 History guaifenesin [Mucinex] 600 mg PO BID 03/19/19 03/19/19 History hydroxyzine pamoate [Vistaril] 50 mg PO QID PRN 03/19/19 03/19/19 History ibuprofen 800 mg PO TID PRN 03/19/19 03/19/19 History melatonin 3 mg PO HS PRN 03/19/19 03/19/19 History multivitamin 1 tab PO DAILY 03/19/19 03/19/19 History thiamine HCl (vitamin B1) 100 mg PO DAILY 03/19/19 03/19/19 History trazodone 25 mg PO HS 03/19/19 03/19/19 History Patient History Medical History Alcohol use disorder Hypertension Insomnia Pneumonia loculated effusion Tobacco use disorder Surgical History H/O splenectomy Family History Unknown Family history non-contributory Social History Preferred Language: Mauritanian Communication Ability: Effective Beliefs That Will Affect Care: None marital status: Single Current Living Situation: Spouse Current Living Situation Comment: [facility] Other Information That Helps Us Care for You: No Feels Safe at Home: Yes Safety Concerns: Feels Safe At This Time Smoking Status: Current every day smoker Tobacco Type: cigarettes Cigarettes Per Day: 20 Do You Dip or Chew Tobacco: No Hx Alcohol Use: Yes Alcohol type: beer Alcohol Intake Frequency: Daily Hx Substance Use: No Review of Systems Review of Systems: Other refused to provide ROS Physical Exam Constitutional: WD/WN, vitals as above Eyes: had sleeping mask on ENMT: external ear and nose normal, oropharynx normal Neck: normal visual inspection Respiratory: normal respiratory effort; no respiratory distress, no labored breathing and does not use accessory muscles resfused exam Cardiovascular: Rate/Rhythm: regular rate Gastrointestinal (Abdomen): Inspection/Auscultation: abdomen normal to inspection; abdomen not distended Musculoskeletal: no cyanosis or clubbing, extremities motor strength 5/5 Skin: no rashes, warm and dry multiple tattoos Psychiatric: A+Ox3, euthymic affect Results & Data Vital Signs (Past 12 Hours) Vital Signs Temp Pulse Pulse Resp BP BP Pulse Ox 03/25/19 07:40 36.8 C 86 14 122/80 97 03/24/19 23:20 36.9 C 97 H 16 118/74 96 Laboratory Results Microbiology 03/21/19 14:34 Pleural Fluid Gram Stain - Final 03/21/19 14:34 Pleural Fluid Aerobic and Anaerobic Culture - Preliminary Gram positive cocci 03/21/19 14:34 Lung,Right Gram Stain - Final 03/21/19 14:34 Lung,Right Aerobic and Anaerobic Culture - Preliminary No growth to date. 03/19/19 20:35 Blood Aerobic Blood Culture - Final No growth in Aerobic bottle after 5 days. 03/19/19 20:35 Blood Anaerobic Blood Culture - Final No growth in Anaerobic bottle after 5 days. 03/19/19 20:10 Blood Aerobic Blood Culture - Final No growth in Aerobic bottle after 5 days. 03/19/19 20:10 Blood Anaerobic Blood Culture - Final No growth in Anaerobic bottle after 5 days. 03/21/19 14:34 Pleural Fluid Fungal Smear - Final 03/21/19 14:34 Pleural Fluid Fungal Culture - Preliminary No yeast or fungus isolated - Report 1, Additional Report to Follow. 03/21/19 14:34 Lung,Right Fungal Smear - Final 03/21/19 14:34 Lung,Right Fungal Culture - Preliminary No yeast or fungus isolated - Report 1, Additional Report to Follow. 03/21/19 14:36 Pleural Fluid Acid Fast Bacilli Smear - Final 03/21/19 14:36 Lung,Right Acid Fast Bacilli Smear - Final
[2019-03-25] MEDS: ACETAMINOPHEN 325 MG TAB PO PRN (17:16)
[2019-03-25] MEDS ORDERED: Nursing to Pharmacy Communication ONE (19:56)
[2019-03-25] MEDS: TRAZODONE HCL 50 MG TAB PO SCH (23:19)
[2019-03-25] MEDS: MoRPHine SULFATE 2 MG/ML CARP IV PRN (23:20)
[2019-03-26] MEDS: AZITHROMYCIN 500 MG in DEXTROSE 5% 250 ML IV SCH (00:10)
[2019-03-26] MEDS: PIPERACILLIN/TAZOBACTAM 3.375 GM in DEXTROSE 5% 100 ML IV SCH ×2 (05:57→13:18)
--- NOTE | 2019-03-26 07:18 | Hospitalist Progress Note ---
Date of Service March 26, 2019 Assessment & Plan (1) Sepsis: Secondary to empyema Status post chest tube placement ID consulted, transition to Augmentin twice daily x3 weeks total Diarrhea, resolved Likely overflow diarrhea secondary to moderate constipation Denies any complaints Alcohol abuse No signs of active alcohol withdrawal Patient to return to alcohol rehab on discharge tomorrow Tobacco use disorder Nicotine patch Counseled to quit smoking Thrombocytosis Macrocytosis In setting of S/P splenectomy, trauma, ongoing infection Thrombocytosis is secondary to splenectomy and current infection Appreciate hematology input and recommendation. No additional treatment now Platelet count remains more than 1.1 million Will need to follow-up with salesperson [employer] Dr. Regalado Microcytic anemia Likely folic acid deficiency due to alcohol use Continue folic acid Monitor Insomnia Continue Home meds DVT Px: SCDs Encourage to ambulate Code Status: Full Code Disposition: Return to alcohol rehab tomorrow Subjective Follow-up for empyema Seen resting in bed, comfortable, watching TV States he feels improved today compared yesterday No shortness of breath cough Emanating with no problems No other symptoms Review of Systems Review of Systems: All systems reviewed & are unremarkable except as noted in HPI & below Physical Exam Physical Exam: General- oriented x 3, not in distress, speaks in sentences with no effort or accessory muscle use Eyes- anicteric Neck- no JVD Lungs-decreased breath sounds right base, no crackles or wheezing Clear breath sounds of the left Heart- normal rate, regular rhythm; no murmurs Abdomen- normal bowel sounds, nondistended, soft, nontender Extremities- no pretibial edema, no calf tenderness Neuro- alert, oriented x 3; no gross focal neurologic deficits Skin- warm & dry Results & Data Vital Signs (Past 12 Hours) Vital Signs Temp Pulse Resp BP BP Pulse Ox 03/26/19 00:23 37.2 C 96 H 14 122/83 96 03/25/19 22:51 36.4 C L 85 16 126/84 98 Laboratory Results Laboratory Results - last 24 hr 03/26/19 03/26/19 08:23 08:23 WBC 21.30 H RBC 3.76 L Hgb 13.5 L Hct 39.5 L MCV 105.1 H MCH 35.9 H MCHC 34.2 RDW Std Deviation 52.7 H RDW Coeff of Delicia 13.6 Plt Count 1294 H* MPV 8.6 Immature Gran % (Auto) 1.5 Neut % (Auto) 67.3 Lymph % (Auto) 16.8 [place] % (Auto) 10.0 Eos % (Auto) 3.6 Baso % (Auto) 0.8 Immature Gran # (Auto) 0.33 H Neut # (Auto) 14.34 H Lymph # (Auto) 3.58 H [place] # (Auto) 2.12 H Eos # (Auto) 0.77 H Baso # (Auto) 0.16 Sodium 135 L Potassium 4.3 Chloride 102 Carbon Dioxide 26 Anion Gap 7.0 BUN 7 D Creatinine 0.64 Est Cr Clr Drug Dosing 157.3 Est GFR ( Amer) 148.1 Est GFR (Non-Af Amer) 127.7 BUN/Creatinine Ratio 10.9 Glucose 105 H Calcium 10.2 H Iron 36
[2019-03-26] MEDS: DOCUSATE SODIUM 100 MG CAP PO SCH ×2 (08:24→21:38)
[2019-03-26] MEDS: FOLIC ACID 1 MG TAB PO SCH (08:25)
[2019-03-26] MEDS: ASPIRIN 325 MG ECTAB PO SCH (08:25)
[2019-03-26] MEDS: guaiFENesin 600 MG TABCR PO SCH ×2 (08:25→21:37)
[2019-03-26] MEDS: MULTIVITAMIN TAB PO SCH (08:25)
[2019-03-26] MEDS: OXYCODONE HCL IR 5 MG TAB (IMMEDIATE RELEASE) PO PRN (08:25)
[2019-03-26] MEDS: THIAMINE HCL 100 MG TAB PO SCH (08:26)
[2019-03-26] MEDS: NICOTINE 21 MG/24 HR TDSY TD SCH (08:26)
[2019-03-26 08:39] LABS: Basophils # (auto) 0.16 K/uL (0-0.2); Basophils % (auto) 0.8 %; Eosinophils # (auto) 0.77 K/uL (0-0.5); Eosinophils % (auto) 3.6 %; Hematocrit (blood only) 39.5 % (42-52); Hemoglobin 13.5 g/dL (14.0-18.0); Immature Granulocytes # (auto) 0.33 K/uL (0.00-0.02); Immature Granulocytes % (auto) 1.5 %; Lymphocytes # (auto) 3.58 K/uL (1.2-3.4); Lymphocytes % (auto) 16.8 %; Mean Corpuscular Hgb Conc 34.2 g/dL (32-36); Mean Corpuscular Volume 105.1 fL (80-100); Mean Platelet Volume 8.6 fL (7.4-10.4); Monocytes # (auto) 2.12 K/uL (0.11-0.59); Neutrophils # (auto) 14.34 K/uL (1.4-6.5); Neutrophils % (auto) 67.3 %; Platelet Count 1294 K/uL (130-400); RDW Coefficient of Variation 13.6 % (11.5-14.5); RDW Standard Deviation 52.7 fL (36.4-46.3); Red Blood Count 3.76 M/uL (4.7-6.1)
[2019-03-26 09:14] LABS: BUN Creatinine Ratio 10.9 (10-20); Calcium 10.2 mg/dl (8.5-10.1); Creatinine Clr Calc Pharmacy 157.3 ml/min; Est GFR (African American) 148.1; Est GFR (Non-African American) 127.7; Potassium 4.3 mmol/L (3.5-5.1)
--- NOTE | 2019-03-26 09:18 | Infectious Disease Progress Nt ---
Date of Service March 26, 2019 Assessment & Plan (1) Empyema: fluid culture growing strep intermedius, likely oral torres, ? aspiration due to underlying etoh abuse leading to empyema. Now s/p drainage, afebrile. would suggest transition to po Augmentin 875mg po bid for a total of 3 weeks since drainage procedure, stop date 04/11. suggest probiotic as well. All other cultures negative. ok for d/c from ID standpoint when otherwise stable. Subjective pt remains afebrile. tolerating zosyn. blood cultures negative. 03/21 VATS culture growing rare S. intermedius, no sensitivities to follow. wbc and platelets remain elevated, suspect related to splenectomy. 94%RA. Results & Data Vital Signs (Past 12 Hours) Vital Signs Temp Pulse Resp BP BP Pulse Ox 03/26/19 08:21 36.8 C 115 H 20 124/84 94 03/26/19 00:23 37.2 C 96 H 14 122/83 96 03/25/19 22:51 36.4 C L 85 16 126/84 98 Laboratory Results Microbiology 03/21/19 14:34 Pleural Fluid Gram Stain - Final 03/21/19 14:34 Pleural Fluid Aerobic and Anaerobic Culture - Preliminary Streptococcus intermedius 03/21/19 14:34 Lung,Right Gram Stain - Final 03/21/19 14:34 Lung,Right Aerobic and Anaerobic Culture - Preliminary No growth to date. 03/19/19 20:35 Blood Aerobic Blood Culture - Final No growth in Aerobic bottle after 5 days. 03/19/19 20:35 Blood Anaerobic Blood Culture - Final No growth in Anaerobic bottle after 5 days. 03/19/19 20:10 Blood Aerobic Blood Culture - Final No growth in Aerobic bottle after 5 days. 03/19/19 20:10 Blood Anaerobic Blood Culture - Final No growth in Anaerobic bottle after 5 days. 03/21/19 14:34 Pleural Fluid Fungal Smear - Final 03/21/19 14:34 Pleural Fluid Fungal Culture - Preliminary No yeast or fungus isolated - Report 1, Additional Report to Follow. 03/21/19 14:34 Lung,Right Fungal Smear - Final 03/21/19 14:34 Lung,Right Fungal Culture - Preliminary No yeast or fungus isolated - Report 1, Additional Report to Follow. 03/21/19 14:36 Pleural Fluid Acid Fast Bacilli Smear - Final 03/21/19 14:36 Lung,Right Acid Fast Bacilli Smear - Final
--- NOTE | 2019-03-26 09:44 | Progress Note ---
DATE: 03/26/2019 HEMATOLOGY PROGRESS NOTE DIAGNOSES: 1. Reactive thrombocytosis. 2. Alcohol abuse. 3. Diarrhea. 4. Empyema. 5. Septicemia. SUBJECTIVE: Chente was seen and examined at bedside. He continues to complain of right-sided chest wall pain attributable to previous chest tube and fluoroscopy. He is receiving adequate pain medication. Review of pleural fluid consistent with empyema with no evidence of malignancy. Peripheral blood counts were not done today, and the requested iron studies are pending as well. The patient offers no complaints other than too frequent visits from the nurses for vital signs, waking him up. He is tolerating his diet and ambulating ad kristi. PHYSICAL EXAMINATION: GENERAL: Mr. Poole is in no acute distress. VITAL SIGNS: Temperature 36.8, pulse 115, respiratory rate 20, blood pressure 124/84. SKIN: Without rash or lesion. HEENT: Oral mucosa without erythema or ulceration. NECK: Supple. Trachea is midline. HEART: Regular rate and rhythm. LUNGS: Clear to auscultation bilaterally. ABDOMEN: Soft, nontender, nondistended. EXTREMITIES: No clubbing, cyanosis, or edema. LABORATORY DATA: Pending. IMPRESSION: 1. Reactive thrombocytosis. 2. Macrocytic anemia. 3. Leukocytosis. 4. Pneumonia/empyema. PLAN: Chente was seen and examined this morning. Seems to be making progress; however, struggles with right-sided thoracic pain from the procedure. Waiting iron studies for review. I suspect his platelet count will retrieve once the inflammation/infection subsides. According to the patient, he will be discharged back to his rehabilitation program for alcoholism. I have nothing further to add at this juncture. At some point, Chente should be seen in our office to monitor platelets in recovery. YOLY
[2019-03-26] MEDS: ACETAMINOPHEN 325 MG TAB PO PRN ×2 (15:26→21:37)
[2019-03-26] MEDS: AMOXICILLIN/CLAVULANATE 875 MG TAB PO SCH (17:31)
[2019-03-26] MEDS: TRAZODONE HCL 50 MG TAB PO SCH (23:30)
[2019-03-26] MEDS: MoRPHine SULFATE 2 MG/ML CARP IV PRN (23:30)
[2019-03-27 08:37] LABS: Hemoglobin 12.6 g/dL (14.0-18.0); Mean Corpuscular Hgb Conc 34.1 g/dL (32-36); Mean Corpuscular Volume 102.5 fL (80-100); Platelet Count 1125 K/uL (130-400); Red Blood Count 3.61 M/uL (4.7-6.1); White Blood Count 17.56 K/uL (4.8-10.8)
[2019-03-27] MEDS: DOCUSATE SODIUM 100 MG CAP PO SCH (08:37)
[2019-03-27] MEDS: FOLIC ACID 1 MG TAB PO SCH (08:42)
[2019-03-27] MEDS: MULTIVITAMIN TAB PO SCH (08:42)
[2019-03-27] MEDS: AMOXICILLIN/CLAVULANATE 875 MG TAB PO SCH ×2 (08:42→16:02)
[2019-03-27] MEDS: ASPIRIN 325 MG ECTAB PO SCH (08:42)
[2019-03-27] MEDS: guaiFENesin 600 MG TABCR PO SCH (08:42)
[2019-03-27] MEDS: THIAMINE HCL 100 MG TAB PO SCH (08:42)
[2019-03-27] MEDS: NICOTINE 21 MG/24 HR TDSY TD SCH (08:42)
[2019-03-27] MEDS: OXYCODONE HCL IR 5 MG TAB (IMMEDIATE RELEASE) PO PRN (08:43)
[2019-03-27 08:52] LABS: BUN Creatinine Ratio 10.8 (10-20); Blood Urea Nitrogen 6 mg/dl (7-18); Calcium 9.8 mg/dl (8.5-10.1); Carbon Dioxide 25 mmol/L (21-32); Chloride 104 mmol/L (98-107); Creatinine Clr Calc Pharmacy 183.1 ml/min; Est GFR (African American) > 150.0; Glucose 95 mg/dl (70-99); Potassium 4.1 mmol/L (3.5-5.1); Sodium 135 mmol/L (136-145)
[2019-03-27 09:01] LABS: Basophils # (auto) 0.15 K/uL (0-0.2); Basophils % (auto) 0.9 %; Eosinophils % (auto) 5.1 %; Immature Granulocytes # (auto) 0.26 K/uL (0.00-0.02); Immature Granulocytes % (auto) 1.5 %; Lymphocytes # (auto) 3.12 K/uL (1.2-3.4); Lymphocytes % (auto) 17.8 %; Monocytes # (auto) 1.84 K/uL (0.11-0.59); Monocytes % (auto) 10.5 %; Neutrophils # (auto) 11.29 K/uL (1.4-6.5); Neutrophils % (auto) 64.2 %
--- NOTE | 2019-03-27 09:26 | Progress Note ---
DATE: 03/27/2019 HEMATOLOGY PROGRESS NOTE DIAGNOSES: 1. Reactive thrombocytosis. 2. Alcohol abuse. 3. Diarrhea. 4. Empyema. 5. Septicemia. SUBJECTIVE: Chente was seen and examined at bedside. Requested hospitalist obtain iron studies, which were done yesterday. Serum iron is low normal, and therefore, we will recommend a dose of iron sucrose before he departs. His counts as of yesterday reported platelets of 1.2 million. We will also plan to make arrangements to have Chente see Dr. Acevedo in followup post-discharge. He otherwise feels well. Nursing reports no difficulties. OBJECTIVE: GENERAL: Very pleasant 33-year-old gentleman in no acute distress. VITAL SIGNS: Temperature 37, pulse 102, respiratory rate 18, blood pressure 122/81. SKIN: Without rash or lesion. HEENT: Buccal mucosa clear. NECK: Supple. Trachea midline. HEART: Regular rate and rhythm. LUNGS: Clear to auscultation bilaterally. ABDOMEN: Soft, nontender, nondistended. EXTREMITIES: No clubbing, cyanosis or edema. NEUROLOGIC: Grossly intact. LABORATORY DATA: WBC count 21,300, hemoglobin 13.5, platelet count 1294. Absolute neutrophils 14,340. Sodium 135, potassium 4.3, chloride 102, carbon dioxide 26, creatinine 0.64, BUN 7. IMPRESSION: 1. Reactive thrombocytosis. 2. Iron deficiency. 3. Alcohol abuse. 4. Diarrhea. 5. Empyema. PLAN: Chente seems to be making progress. His iron studies are consistent with deficiency state and would prefer he receive a dose of iron sucrose 300 mg before he departs. Please ensure Chente sees either myself or Dr. Acevedo in the next couple of weeks in the office. I am saying he will be discharged back to rehabilitation center. His elevated white count is predominantly neutrophils. Again, this gentleman was previously splenectomized and thus suspect his baseline counts are higher than average individuals. There is no evidence of emerging immaturity otherwise. Iron deficiency in itself can exacerbate reactive thrombocytosis, it should be treated. He reports no active gastrointestinal or genitourinary bleeding. We will continue to follow Chente during his hospital stay. [facility]
[2019-03-27] MEDS: ACETAMINOPHEN 325 MG TAB PO PRN ×2 (09:50→15:53)
[2019-03-27] MEDS: LACTOBACILLUS ACIDOPHILUS (FLORANEX) TAB PO SCH ×2 (12:56→16:02)
--- NOTE | 2019-03-27 13:05 | Discharge Summary ---
Date of Service March 27, 2019 Admission HPI Per Admitting Provider Patient is a 33-year-old male with history of alcohol use disorder, tobacco use disorder, Insomnia, history of DTs, history of traumatic pneumothorax, traumatic subdural hemorrhage, S/P splenectomy and other problems who was recently admitted at [facility] for bilateral pneumonia and was discharged yesterday to alcohol rehab facility; presents with history of ongoing fever, diarrhea, right-sided pleuritic chest pain, cough with clear expectoration since 3 weeks duration. Patient is a poor historian. As per the records, patient had a fall 3 weeks ago after having few alcohol drinks and was admitted to [facility] and was found to have pneumonia. Patient states that he has been treated with multiple antibiotics during his hospital course but showed no resolution of fever and right-sided pruritic chest pain. He reports chronic diarrhea but denies any abdominal pain, nausea vomiting, blood in stools. His last alcohol drink was 3 weeks ago. He states that his nurse at the rehab fa cility noted him to have decreased breath sounds on the right side and and so was sent to the hospital for further evaluation. He was noted to have low-grade fever while in ED. CT chest showed no evidence of PE, but showed findings suggestive of consolidative and groundglass opacities of the right lung base suggestive of pneumonia. Also showed findings suggestive of small mildly loculated right parapneumonic effusion. Abdominal CT scan also suggestive moderate constipation. Denies any history of SOB, palpitations, orthopnea, PND, dizziness, pedal edema, wheezing, hemoptysis, chills, weakness, change in vision, nausea, vomiting, abdominal pain, dysuria, hematuria, recent change in medications Admission Exam Per Admitting Provider Physical Exam: Vitals signs as noted above General Appearance:Moderately built and nourished, no apparent distress Head: normocephalic, Atraumatic Eyes: normal inspection, EOMI Neck: supple, Trachea midline Respiratory/Chest: Right side decreased breath sounds, CTA, R chest tender Cardiovascular: S1, S2, No murmur, +sinus tachycardia Abdomen/GI:Soft, Non tender, Bowel sounds present Extremities/Musculoskelatal:normal inspection, no edema Neurologic/Psych:AAOX3, grossly no focal neurological deficits Skin: normal color, warm, Multiple well-healed surgical scars on scalp, abdomen Principal Diagnosis RIGHT-SIDED EMPYEMA Discharge Exam General- oriented x 3, not in distress, speaks in sentences with no effort or accessory muscle use Eyes- anicteric Neck- no JVD Lungs- clear breath sounds, no crackles or wheezing bilaterally, chest tube insertion site on the right posterior lateral side healing well, no discharge or bleeding Heart- normal rate, regular rhythm; no murmurs Abdomen- normal bowel sounds, nondistended, soft, nontender Extremities- no pretibial edema, no calf tenderness Neuro- alert, oriented x 3; no gross focal neurologic deficits Skin- warm & dry Discharge Data Allergies Allergy/AdvReac Type Severity Reaction Status Date / Time No Known Allergies Allergy Verified 03/19/19 20:25 Consultations 03/19/19 20:45 ED Decision to Admit Stat 03/19/19 22:18 Consult Case Management - Discharge Planning Routine Consult Health Information Management Stat Consult Thoracic Surgery Routine 03/22/19 03:30 Consult Hematology Routine 03/25/19 08:35 Consult Infectious Diseases Routine Procedures Performed Operation Date: 03/21/19 13:00 Actual Procedures p Right Video Assisted Thoracoscopy with Limited Decortication(Right) - Wesly Haynes MD, FACS Ordered Studies 03/19/19 20:19 CT abd pelvis IV con only Stat CT angio chest PE protocol Stat FINDINGS: CTA: Heart is normal in size without pericardial effusion. There is no thoracic aortic aneurysm or dissection. Patency of the imaged great vessels. Pulmonary arterial tree is opacified to the level of the subsegmental branches and demonstrates no focal filling defects to suggest pulmonary thromboembolic disease. CT CHEST: No focal thyroid nodule. Prominent 9 mm right tracheoesophageal recess lymph node. Additionally, there are enlarged subcarinal and right hilar lymph nodes with subcarinal lymph nodes measuring up to 2.0 x 1.7 cm. Mildly prominent nonenlarged AP window lymph nodes. Focus of air about the right lung base appears to be located within the pleural space on image 31 series 4. Mild enhancement of the pleura. Small mildly loculated right pleural effusion with consolidative opacities and groundglass densities noted within the basal right lower lobe and also within the right middle lobe, notably within the medial segment. Additionally, there are irregular consolidative nodular opacities of the superior segment right lower lobe measuring up to 10 mm, image 117 series 4. Mild paraseptal emphysema of the lung apices, right greater than left. Mild bibasilar bronchial wall thickening with areas of mucous plugging. Patchy groundglass opacities of the left lung base. Nodules of the basal left lower lobe are seen measuring up to 1.3 cm. Soft tissues are unremarkable. Bones appear to be intact. CT ABDOMEN/PELVIS: No pneumatosis or pneumoperitoneum. Absent spleen. Multiple soft tissue nodules of the abdominal left upper quadrant suggestive of splenosis. Liver, pancreas and adrenal glands appear unremarkable. Contracted gallbladder with wall thickening. Kidneys, and ureters appear unremarkable. There is mild circumferential wall thickening of the bladder with partial distention. Prostate is upper limits of normal in size. Aorta and IVC are within normal limits. No adenopathy. No bowel obstruction or bowel wall thickening. Moderate formed stool throughout the colon suggests constipation. Terminal ileum and appendix appear normal. No ascites or mesenteric inflammation. Tiny fat filled periumbilical hernia. Multiple additional small ventral fat filled abdominal hernias are noted. Bones appear to be intact. IMPRESSION: 1. No evidence of pulmonary thromboembolic disease. 2. Consolidative and groundglass opacities of the right lung base suggest pneumonia. Additionally, there are a few irregular nodular consolidative densi ties of the superior segment right lower lobe which are also likely related to infectious or inflammatory etiology. Follow-up CT of the chest after treatment course recommended to document complete resolution. 3. Small mildly loculated right parapneumonic effusion. Focus of air about the right lung base appears to be within the pleural fluid. Correlate clinically to exclude developing empyema. 4. Absent spleen with multiple soft tissue nodules of the abdominal left upper quadrant suggestive of splenosis. Additionally, there are pulmonary nodules of the left lung base measuring up to 13 mm which may also represent splenosis. 5. No bowel obstruction or bowel wall thickening. Normal appendix. 6. Moderate constipation. 7. Additional findings as above. The above report was generated using voice recognition software. It may contain grammatical, syntax or spelling errors. Hospital Course (1) Sepsis: Secondary to empyema Has had antibiotics for about 2 weeks in another facility Started on broad spectrum IV Antibiotics (Vanco, Zosyn, azithromycin) Blood cultures obtained -negative CT surgery consulted for drainage of empyema Status post Right Video Assisted Thoracoscopy with Limited Decortication(Right) - Wesly Haynes MD, FACS 03/21 Been stable after the procedure Chest x-ray revealed very small right apical pneumothorax in the right chest tube in situ Status post removal of the chest tube from the right side Chest tube drain site is healing nicely without any inflammation ID consulted, transition to Augmentin 875-125 mg p.o. twice daily , will need 3 weeks total of Augmentin Probiotics daily Patient will need repeat CT chest after completion of antibiotic therapy Will need follow-up with primary care physician in 1 to 2 weeks Follow-up with infectious disease clinic, [facility] Jovon simon, Dr. Bita Baires in 2 weeks Thrombocytosis Macrocytosis In setting of S/P splenectomy, trauma, ongoing infection Thrombocytosis is secondary to splenectomy and current infection Tolerated by donor processor, Dr. Bullock, no additional treatment now Will need to follow-up with donor processor Dr. Bullock in 2 weeks, [place] simon Microcytic anemia Likely folic acid deficiency due to alcohol use, iron deficiency Iron level 36, IV iron given Continue folic acid Will need to follow-up with donor processor Dr. Bullock in 2 weeks, [facility] Jovon simon Diarrhea, resolved Likely overflow diarrhea secondary to moderate constipation Denies any complaints Alcohol abuse No signs of active alcohol withdrawal Patient to return to alcohol rehab Tobacco use disorder Nicotine patch Counseled to quit smoking Insomnia Continue Home meds Disposition: Return to alcohol rehab Will need follow-up with [facility] primary care physician Dr. Bernal on 04/01/19 at 2:05pm. Address: [place] [address] Follow-up with infectious disease clinic, [facility] Jovon simon, Dr. Bita Baires in 2 weeks Follow-up with [facility] donor processor Dr. Bullock in 2 weeks. Total Time Total Time Spent Total Time Spent (In Minutes): 50 minutes Discharge Plan Discharge Items Patient Disposition: Transfer Inpatient Rehab Fac Reason For Visit: PNEUMONIA Discharge Diagnosis: Right-sided empyema Discharge Goals: Diagnostic testing and Therapeutic intervention Activity: As commented below Activity Comment: Resume activity gradually as tolerated Non-emergency contact: Primary Care Provider Call non-emergency contact if: you have any medication questions, your symptoms worsen, your pain is not controlled, you have a fever, your wound has increased redness, your wound has increased drainage and your wound pain has increased Follow-up/Referrals: Bita Baires DO [Physician] - Kit Bullock DO [Physician] - PCP,NO [Primary Care Provider] - Diet: Heart Healthy Addtl Provider Instructions: Please order probiotics p.o. daily while on antibiotic therapy, and at least 1 week later. Will need follow-up with [facility] primary care physician Dr. Bernal on 04/01/19 at 2:05pm. Address: [address] [place] [address] , [place] [address] Follow-up with infectious disease clinic, [facility], Dr. Bita Baires in 2 weeks Follow-up with [facility] donor processor Dr. Bullock in 2 weeks. Please refer to accompanying hospital discharge summary for further details. Prescriptions: New nicotine [Nicoderm CQ] 21 mg/24 hr Patch 24 Hour 21 mg transdermal QAM 7 Days Qty: 7 RF: 0 amoxicillin-pot clavulanate 875-125 mg Tablet 1 tab PO BIDM 20 Days Qty: 40 RF: 0 docusate sodium 100 mg Capsule 100 mg PO BID 7 Days Qty: 14 RF: 0 Lactobacillus acidoph-L.bulgar [Floranex] 1 million cell Tablet 4 tab PO QIDM 30 Days Qty: 480 RF: 0 Continued multivitamin Tablet 1 tab PO DAILY RF: 0 acetaminophen [Tylenol] 325 mg Tablet 650 mg PO BID PRN (Reason: Pain) RF: 0 trazodone 50 mg Tablet 25 mg PO HS RF: 0 ibuprofen 800 mg Tablet 800 mg PO TID PRN (Reason: Pain) RF: 0 thiamine HCl (vitamin B1) 100 mg Tablet 100 mg PO DAILY RF: 0 hydroxyzine pamoate [Vistaril] 50 mg Capsule 50 mg PO QID PRN (Reason: Anxiety) RF: 0 melatonin 3 mg Tablet 3 mg PO HS PRN (Reason: Sleep) RF: 0 calcium carbonate [Tums] 200 mg calcium (500 mg) Tablet,Chewable 400 mg PO Q4H PRN (Reason: Indigestion) RF: 0 folic acid 1 mg Tablet 1 mg PO DAILY RF: 0 guaifenesin [Mucinex] 600 mg Tablet Extended Release 12hr 600 mg PO BID RF: 0 Stand-Alone Forms: My [facility] Discharge Orders: Discharge Order (Routine); Ordered 03/27/19 Ordered By: Josef Meyer Skilled Items Patient informed of condition?: Yes DNR: No Discharge Level of Care: Acute rehab Communicable Disease: No Discharge Prognosis: Stable Admission Data Admit Date/Time: 03/19/19 21:15 Attending Provider: Josef Meyer Admit Provider: Jovani Juárez Primary Care Provider: PCP,NO Other Providers: Wesly London ; Wesly Haynes ; Kit Bullock Manabendra ; Rl Alvarado Service: Surgical Services
[2019-03-27] MEDS: IRON SUCROSE 300 MG in SODIUM CHLORIDE 0.9% 250 ML IV ONE ×2 (13:57→13:59)
== END 2019-03-27 16:32 | DRG 853 ==
LOC: ED 19:25 → 2S 21:15 → SUATTDRO 21:15 → 2S 21:45 → 3W 03-20 17:03